=== PATIENT | female | born 1965 | race Two or more races ===

== ENCOUNTER → 2020-06-26 11:11 | Outpatient (BNVA) | payer OTHER, SELFPAY | PROVIDERS: Visit Provider Surgery | DX: Z76.89 Persons encountering health services in other specified circumstances (principal) | CPT/HCPCS: 99393 ==

== ENCOUNTER 2020-06-26 13:07 | Outpatient (REF) | payer OTHER, SELFPAY ==
[2020-06-26 14:01] LABS: MANUAL DIFF FLAG NO
[2020-06-26 14:08] LABS: Basophils Percent Auto 0.3 % (0-2); Eosinophils Absolute Auto 0.1 X10*3/uL (0.0-0.4); Hemoglobin 12.9 g/dl (12.0-16.0); Imm Gran Abs Auto 0.01 X10*3/uL (0.00-0.03); Imm Gran Pct Auto 0.2 % (0.0-0.4); Lymphocytes Absolute Auto 1.7 X10*3/uL (1.2-4.9); Lymphocytes Percent Auto 29.3 % (20-40); Mean Corpuscular HGB Conc 31.5 g/dl (31.0-35.0); Mean Corpuscular Volume 89.1 fL (80-98); Mean Platelet Volume 10.6 fL (9.4-12.3); Monocytes Absolute Auto 0.6 X10*3/uL (0.1-1.2); Monocytes Percent Auto 9.8 % (2-11); Neutrophils Absolute Auto 3.4 X10*3/uL (2.0-8.3); Neutrophils Percent Auto 59.4 % (45-73); Platelet Count 252 X10*3/uL (160-400); Red Cell Distribution Width 13.2 % (11.0-16.0); White Blood Count 5.7 X10*3/uL (4.8-10.8)
[2020-06-26 14:44] LABS: Alanine Aminotransferase 19 U/L (0-31); Albumin Level 4.4 g/dL (3.5-5.0); Alkaline Phosphatase 81 U/L (39-117); Amylase 69 U/L (28-100); Anion Gap 10 (12-20); Aspartate Amino Transferase 28 U/L (5-31); Bilirubin Total 0.8 mg/dL (0.0-1.0); Blood Urea Nitrogen 26 mg/dL (9-16); Calcium 9.4 mg/dL (8.4-10.2); Carbon Dioxide 28 mmol/L (22-29); Chloride 107 mmol/L (96-108); Estimated Glomerular Filt Rate > 60; Glucose Random 68 mg/dL (60-115); Potassium 4.1 mmol/l (3.3-5.1); Sodium 141 mmol/L (135-145)
[2020-06-28 21:26] LABS: CRP High Sensitivity 0.6 mg/L
== END 2020-06-26 13:08 | disposition home or self-care (01) ==
LOC: HO.LAB 13:07
PROVIDERS: PCP Internal Medicine; Visit Provider Surgery
DX: K80.20 Calculus of gallbladder without cholecystitis without obstruction (principal)
CPT/HCPCS: 36415; 80053; 82150; 85025; 86141

== ENCOUNTER 2020-06-30 09:11 | Day surgery (SDC) | payer OTHER, SELFPAY ==
--- NOTE | 2020-06-29 15:49 | HO.ANESPROP2 ---
Documented by User: Naomi Conway 06/29/20 15:55 HPI - Anesthesia Eval Consult details Narrative: 54yo F for lap musa s/p gastric bypass [facility] Past Medical History Medical History (Updated 06/30/20 @ 11:11 by Elen Ellis) Cholelithiasis Intestinal malabsorption Surgical History Surgical History S/P gastric bypass Status post panniculectomy Social History Social History Smoking Status: Never smoker Use of substances other than those prescribed or required for medical reasons: No Advance Directives: No Advance Directives Information Provided: No Meds Allergies Allergy/AdvReac Type Severity Reaction Status Date / Time hydrocodone [HYDROCODONE] Allergy Mild SWELLING Unverified 06/30/20 11:16 Pt states no known food Allergy Unknown Unknown Uncoded 06/30/20 11:16 allerg Home Medications Medication Instructions Recorded Confirmed Type ascorbate calcium (vitamin C) 500 500 mg PO DAILY 06/26/20 06/26/20 History mg tablet multivitamin 1 cap PO DAILY 06/26/20 06/26/20 History Exam Exam Date and Time: June 29, 2020 0251 Pertinent Lab Results Pertinent Lab Results: Laboratory Tests 06/26/20 06/26/20 13:36 13:36 WBC 5.7 Hgb 12.9 Hct 41.0 Plt Count 252 Sodium 141 Potassium 4.1 Chloride 107 Carbon Dioxide 28 BUN 26 H Creatinine 0.73 Calcium 9.4 Total Bilirubin 0.8 AST 28 ALT 19 Alkaline Phosphatase 81 Total Protein 7.0 Albumin 4.4 Assessment and Plan Assessment Anesthesia Assessment: Chart Reviewed Documented by User: Elen Ellis 06/30/20 12:58 [facility] Past Medical History Medical History (Updated 06/30/20 @ 11:11 by Elen Ellis) Cholelithiasis Intestinal malabsorption Surgical History Surgical History S/P gastric bypass Status post panniculectomy History of Problems with Anesthesia: No Social History Social History Smoking Status: Never smoker Use of substances other than those prescribed or required for medical reasons: No Advance Directives: No Advance Directives Information Provided: No Meds Allergies Allergy/AdvReac Type Severity Reaction Status Date / Time hydrocodone [HYDROCODONE] Allergy Mild SWELLING Unverified 06/30/20 11:16 Pt states no known food Allergy Unknown Unknown Uncoded 06/30/20 11:16 allerg Home Medications Medication Instructions Recorded Confirmed Type ascorbate calcium (vitamin C) 500 500 mg PO DAILY 06/26/20 06/26/20 History mg tablet multivitamin 1 cap PO DAILY 06/26/20 06/26/20 History Exam Airway Mallampati Class: I TM Dist: >3cm Neck ROM: Full Heart: RRR Lungs: CTA Assessment and Plan Assessment Anesthesia Assessment: Anesthesia Plan Discussed, Consent Obtained and Chart Reviewed Final Anesthetic Review NPO: Yes ASA Class: II Final Preanesthetic Review: Meds & Allergies Reviewed, Consent Obtained/Reviewed, Med/Surg/Anes Hx Reviewed and Anes Risks/Benef Reviewed Patient Risk: Low Procedure Risk: Intermediate Anesthetic Plan Anesthetic Plan: GA Disposition: Standard PACU
[2020-06-29 16:00] VITALS: BMI 16.6
[2020-06-30] VITALS (11 sets, daily range): BP systolic 133–169; BP diastolic 68–99; PULSE 49–72; RESP 16–20; TEMP 36.1–36.7; O2SAT 95–100
[2020-06-30] MEDS: Lactated Ringers 1,000 ML 100 ML IVCONT (10:38)
[2020-06-30] MEDS: ceFAZolin Sodium/Dextrose,Iso 2 GM/50 ML PIGGYBACK IV (10:38)
[2020-06-30 11:09] LABS: SARS COV2 PCR INHOUSE NEGATIVE (Negative)
--- NOTE | 2020-06-30 12:10 | MHC.SHP ---
Pre-Procedural Eval Section A The patient is an INPATIENT: No The History & Physical has been completed within 30 days and I have reviewed it.: Yes Section B Chief Complaint: Cholesistitis Details of Present Illness: Cholecystitis/cholelithiasis Relevant Family History (Specify if Yes): No Relevant Social History: None Present Medications: None History of Previous Operations: Relevant previous surgery/procedure and date(s) (Lap gastric bypass surgery) Allergies: Allergies Allergy/AdvReac Type Severity Reaction Status Date / Time hydrocodone [HYDROCODONE] Allergy Mild SWELLING Unverified 06/30/20 11:16 Pt states no known food Allergy Unknown Unknown Uncoded 06/30/20 11:16 allerg Review of Systems Sugical H&P ROS: Negative: Constitution, Cardiovascular, Respiratory, Neurological, Psychiatric, Hem-Onc, Allergic/Immunologic, Genitourinary, Musculoskeletal, Integumentary, Endocrine and Eyes/Ears/Nose/Throat and Yes, Specify: Gastrointestinal (abdominal pain) Exam Surgical H&P Exam: Normal: HEENT, Normal: Heart, Normal: Lungs, Normal: Extremities, Normal: Abdomen, Normal: Skin and Normal: Neurological Plan Diagnosis/Plan: Unchanged Patient has been examined and remains a candidate for the planned procedure
--- NOTE | 2020-06-30 14:41 | PM.OP ---
Brief Operative Note Date of procedure: 06/30/20 Pre-op diagnosis: Symptomatic cholelithiasis Post-op diagnosis: same (and Cholecystitis and internal hernia) Procedure: PROCEDURE DATE: 06/30/2020 PREOPERATIVE DIAGNOSIS: Symptomatic cholelithiasis, mid epigastric and right upper quadrant abdominal pain POSTOPERATIVE DIAGNOSIS: Same as above. Cholecystitis and internal hernia PROCEDURE: Upper endoscopy, laparoscopic cholecystectomy and laparoscopic internal hernia repair Surgeon: Matt Magallon M.D.. Ph.D. Employee Communications Coordinator: Yesenia Javier PA-C Anesthesia: General endotracheal anesthesia Estimated blood loss: Minimal FINDINGS AND PROCEDURE: OPERATIVE INDICATIONS: The patient is a 54 year old female known to me who underwent a laparoscopic gastric bypass. The patient had remarkable weight loss so far and had a completely uneventful recovery. The patient was doing very well but has recently been complaining of persistent mid epigastric and right upper quadrant abdominal pain which is mostly postprandial. Ultrasound of the abdomen and pelvis was consistent with cholelithiasis. Based on this information I recommended laparoscopic cholecystectomy, upper endoscopy to evaluate the patient's symptoms. In addition to that the plan was also to examine the gastric bypass at the same time. Risks and complications of the surgery were discussed with the patient advance particularly the possibility of conversion to an open surgery, bleeding, infection, obstruction, deep vein thrombosis or pulmonary embolism, bile leak or major bile duct injury that may require surgical intervention. The patient understood the risks and was in agreement with the plan. PROCEDURE: After informed consent was obtained by the patient, the patient was transferred to the Operating Room and was placed in the supine position. The patient was given preoperative antibiotics and after successful induction of general anesthesia pneumatic compression devices were placed. An upper endoscopy was performed next, the oropharynx and esophagus appeared within the normal limits. There was no hiatal hernia. The small pouch was entered, appeared to be of normal size, there was no gastritis and the gastrojejunostomy was patent, there was no anastomotic ulcer. The proximal Nori limb appeared to be normal as well. At that point the Nori limb and the pouch was decompressed and the scope was withdrawn from the patient's mouth. The patient was then prepped and draped in the usual sterile manner and abdominal access was established with the Dread technique. The abdomen was insufflated with C02 to a pressure of 15 mmHg. A 5 mm Versi-step port was placed, slightly to the right and superior from the umbilicus. The 5 mm camera was introduced. I inspected the area where the port had been placed and there was no injury. The patient was then placed initially in a steep reverse Trendelenburg position and three additional ports were placed, specifically a 12 mm Versi-step port just to the right of the midline below the xiphoid process and two 5 mm Versi-step ports at the right upper quadrant and right flank. The patient was then placed back in the supine position and we examined the bypass by retracting the transverse mesocolon and the omentum cephalad. The jejunostomy was identified, it appeared to be normal. There was no dilation of the anastomosis. The small bowel mesenteric defect was closed and there was no internal hernia. The biliopancreatic limb was traced back to the ligament of Treitz and the Hester's defect which was actually open wiht part of the biliopancreatic limb herniated under the Nori limb mesentery. This was closed with a 2.0 Surgidac suture which was placed in a U-fashion between the biliopancreatic limb and the Nori limb mesentery. The mesocolic defect was closed. At that point we positioned back the transverse colon and the omentum above the small intestine and then the patient was placed in a steep reverse Trendelenburg position tilted to the left side. The gallbladder was retracted cephalad and laterally. There were adhesions between the omentum and the gallbladder wall that were taken down. The peritoneal attachments of the gallbladder at the triangle of Calot posteriorly and anteriorly were taken down. The cystic duct and artery were both seen. They were completely dissected free, skeletonized all the way to the infundibulum of the gallbladder . In a similar fashion I also cleaned the liver bed just behind the cystic artery to make sure there was no additional structures in this area. Once we confirmed that both structures were entering into the gallbladder and there were no other structures in the area, they were both clipped with two clips proximally, one distally and were cut in-between. We then using the electrocautery I slowly took down the gallbladder from the liver bed. Small areas of bleeding from the liver parenchyma were controlled with the cautery. After the gallbladder was completely detached from the liver bed, it was placed in an EndoCatch bag and was removed without difficulty from the xiphoid port. I then inspected the clips at the cystic duct and artery and were both in place. An additional clip was placed in the omentum to control a minor bleeding site. There was no active bleeding from the liver bed. I thoroughly irrigated the right upper quadrant and we removed all fluid until clear. At that point the patient was placed in supine position, I deflated the abdomen and we removed all ports under direct vision and no bleeding was noted from any of the port sites. The fascia of the 12 mm port was closed using a #1 Polysorb suture. 1000cc 0.25% Marcaine plain with 10 mg of Dexamehtasone were used to infiltrate the fascial closure as well as all skin incisions. The wounds were irrigated with saline mixed with antibiotic solution and then the skin was closed with 4-0 Monocryl subcuticular sutures antibiotic-coated. Steri-strips and OpSites were used to cover all incisions. The patient extubated and was transferred in stable condition to the Recovery Room for further care. I was present and performed all steps of the procedure. Ms. Javier was the welder first class. There were no residents to assist with this case. Matt Magallon M.D., Ph.D. Anesthesia: GETA and local (TAP) Surgeon: Benito Magallon Employee Communications Coordinator: Yesenia Javier Estimated blood loss (mL): 10 IV fluids (mL): 2,000 Pathology: other (Gallbladder) Condition: stable Disposition: PACU
[2020-06-30] MEDS: oxyCODONE HCl Immed Release 5 MG TABLET PO (14:57)
[2020-06-30] MEDS: diphenhydrAMINE HCL 25 MG TABLET PO (15:17)
[2020-06-30] MEDS: diphenhydrAMINE HCL 50 MG/ML VIAL 12.5 MG IVPUSH (15:51)
== END 2020-06-30 23:59 ==
PROVIDERS: Surgery; PCP Internal Medicine; Visit Provider Internal Medicine
PROC: 0FT44ZZ Resection of Gallbladder, Percutaneous Endoscopic Approach (ICD-10-PCS; CPT 47562; principal; 2020-06-30 14:10)
DX: K80.10 Calculus of gallbladder with chronic cholecystitis without obstruction (principal); K82.8 Other specified diseases of gallbladder; K90.49 Malabsorption due to intolerance, not elsewhere classified; Z98.84 Bariatric surgery status
CPT/HCPCS: 47562; 36415; 87635; 88304; J0131; J0690; J1100; J1200; J1885; J2250; J2405; J3010; Q0163

== ENCOUNTER → 2020-09-28 07:32 | Outpatient (BNVA) | payer OTHER, SELFPAY | PROVIDERS: PCP Internal Medicine; Visit Provider Surgery | DX: Z76.89 Persons encountering health services in other specified circumstances (principal) ==

== ENCOUNTER 2020-10-13 07:27 | Outpatient (REF) | payer OTHER, SELFPAY ==
--- NOTE | 2020-10-13 07:31 | MM_ITS ---
EXAMINATION: MM SCREENING DIGITAL BREAST TOMOSYNTHESIS, BILATERAL CLINICAL INFORMATION: Screening. Asymptomatic. The lifetime risk of breast cancer based on the Tyrer-Cuzick Model is 8.5%. COMPARISON: Mammography: October 08, 2019 and studies dating back to March 05, 2014 TECHNIQUE: Digital breast tomosynthesis is performed in both the craniocaudal and mediolateral oblique views along with computer-aided detection (CAD). Synthesized 2D images are generated from the tomosynthesis. FINDINGS: There are scattered areas of fibroglandular density (ACR BI-RADS breast composition Category b). There are no significant masses, abnormal calcifications, or other abnormalities. MM/MM tomosynthesis screening BI IMPRESSION: There are no significant changes from prior study. ASSESSMENT: BI-RADS 1: Negative RECOMMENDATION: Routine annual mammography screening. This patient's information was entered into a reminder system with a target due date for their next mammogram.
== END 2020-10-13 07:28 | disposition home or self-care (01) ==
LOC: HO.MAMMO 07:27
PROVIDERS: PCP Internal Medicine; Visit Provider Internal Medicine
DX: Z12.31 Encounter for screening mammogram for malignant neoplasm of breast (principal)
CPT/HCPCS: 77063; 77067

== ENCOUNTER 2020-10-13 08:13 | Outpatient (REF) | payer OTHER, SELFPAY | END 2020-10-13 08:14 | disposition home or self-care (01) | LOC: HO.LAB 08:13 | PROVIDERS: PCP Internal Medicine; Visit Provider Internal Medicine | DX: Z20.822 Contact with and (suspected) exposure to COVID-19 (principal) | CPT/HCPCS: 36415; C9803; U0003 ==

== ENCOUNTER → 2020-11-12 08:17 | Outpatient (BNVA) | payer OTHER, SELFPAY | PROVIDERS: PCP Internal Medicine; Visit Provider Physician Assistant ==

== ENCOUNTER 2020-11-19 10:15 | Outpatient (REF) | payer OTHER, SELFPAY ==
[2020-11-19 12:59] LABS: MANUAL DIFF FLAG NO
[2020-11-19 13:11] LABS: Basophils Percent Auto 0.6 % (0-2); Eosinophils Absolute Auto 0.1 X10*3/uL (0.0-0.4); Eosinophils Percent Auto 1.2 % (0-4); Hematocrit 41.6 % (37-47); Hemoglobin 13.1 g/dl (12.0-16.0); Imm Gran Abs Auto 0.01 X10*3/uL (0.00-0.03); Imm Gran Pct Auto 0.2 % (0.0-0.4); Lymphocytes Absolute Auto 1.7 X10*3/uL (1.2-4.9); Lymphocytes Percent Auto 33.1 % (20-40); Mean Corpuscular HGB Conc 31.5 g/dl (31.0-35.0); Mean Corpuscular Volume 88.9 fL (80-98); Mean Platelet Volume 10.4 fL (9.4-12.3); Monocytes Absolute Auto 0.4 X10*3/uL (0.1-1.2); Monocytes Percent Auto 8.1 % (2-11); Neutrophils Percent Auto 56.8 % (45-73); Platelet Count 240 X10*3/uL (160-400); Red Blood Count 4.68 X10*6/uL (4.20-5.50); Red Cell Distribution Width 12.9 % (11.0-16.0); White Blood Count 5.2 X10*3/uL (4.8-10.8)
[2020-11-19 13:31] LABS: Anion Gap 13 (12-20); Blood Urea Nitrogen 22 mg/dL (9-16); Calcium 9.4 mg/dL (8.4-10.2); Carbon Dioxide 27 mmol/L (22-29); Chloride 107 mmol/L (96-108); Estimated Glomerular Filt Rate > 60; Glucose Fasting 83 mg/dL (60-99); Iron 96 mcg/dL (30-160); Potassium 4.3 mmol/L (3.3-5.1); Sodium 143 mmol/L (135-145); Unsaturated Iron Binding 304 ug/dL
[2020-11-19 13:32] LABS: Alanine Aminotransferase 28 U/L (0-31); Albumin Level 4.4 g/dL (3.5-5.0); Alkaline Phosphatase 93 U/L (39-117); Aspartate Amino Transferase 32 U/L (5-31); Bilirubin Total 1.3 mg/dL (0.0-1.0); C Reactive Protein 0.03 mg/dL (< or = 0.50); Cholesterol 244 mg/dL; HDL Cholesterol 74 mg/dL; LDL Cholesterol Calculated 156 mg/dl; Percent Iron Saturation 24 % (15-50); Total Iron Binding Capacity 400 mcg/dL (228-428); Total Protein 7.2 g/dL (6.5-8.0); Triglycerides 72 mg/dL
[2020-11-19 13:53] LABS: Ferritin 12 ng/mL (10-250); TSH reflex Free T4 0.56 uIU/mL (0.32-4.0); Vitamin D 25-OH Total 38.1 ng/mL (>30)
[2020-11-19 14:01] LABS: Estimated Average Glucose 97 mg/dL
[2020-11-19 18:22] LABS: Folate 18.7 ng/mL (> or = 4.0); Vitamin B12 717 pg/mL (200-900)
[2020-11-20 11:16] LABS: Insulin Level Total 2.5 uIU/mL
[2020-11-22 02:41] LABS: Zinc 79 mcg/dL (60-130)
[2020-11-23 13:56] LABS: Calcium (PTHI) 9.5 mg/dL (8.6-10.4); PTHI 64 pg/mL (14-64)
[2020-11-24 13:41] LABS: Vitamin B1 15 nmol/L (8-30)
[2020-11-25 02:02] LABS: Vitamin A 44 mcg/dL (38-98)
== END 2020-11-19 10:16 | disposition home or self-care (01) ==
LOC: HO.LAB 10:15
PROVIDERS: PCP Internal Medicine; Visit Provider Physician Assistant
DX: K91.2 Postsurgical malabsorption, not elsewhere classified (principal); Z90.3 Acquired absence of stomach [part of]; Z98.84 Bariatric surgery status; Z98.890 Other specified postprocedural states; Z71.3 Dietary counseling and surveillance
CPT/HCPCS: 36415; 80053; 80061; 82306; 82607; 82728; 82746; 83036; 83525; 83540; 83970; 84425; 84443; 84590; 84630; 85025; 86140

== ENCOUNTER → 2020-11-24 08:51 | Outpatient (BNVA) | payer OTHER, SELFPAY | PROVIDERS: PCP Internal Medicine; Visit Provider Dietitian, Registered ==

== ENCOUNTER → 2021-01-19 07:29 | Outpatient (BNVA) | payer OTHER, SELFPAY | PROVIDERS: PCP Internal Medicine; Visit Provider Dietitian, Registered ==

== ENCOUNTER 2021-04-20 09:40 | Outpatient (REF) | payer OTHER, SELFPAY ==
[2021-04-20 10:53] LABS: Alanine Aminotransferase 17 U/L (0-31); Albumin Level 4.1 g/dL (3.5-5.0); Alkaline Phosphatase 87 U/L (39-117); Anion Gap 10 (12-20); Aspartate Amino Transferase 29 U/L (5-31); Blood Urea Nitrogen 14 mg/dL (9-16); Calcium 9.1 mg/dL (8.4-10.2); Carbon Dioxide 26 mmol/L (22-29); Chloride 109 mmol/L (96-108); Cholesterol 249 mg/dL; Estimated Glomerular Filt Rate > 60; Glucose Fasting 92 mg/dL (60-99); HDL Cholesterol 80 mg/dL; LDL Cholesterol Calculated 148 mg/dl; Potassium 4.1 mmol/L (3.3-5.1); Sodium 141 mmol/L (135-145); Total Protein 6.7 g/dL (6.5-8.0); Triglycerides 107 mg/dL
== END 2021-04-20 09:41 | disposition home or self-care (01) ==
LOC: HO.LAB 09:40
PROVIDERS: PCP Internal Medicine; Visit Provider Internal Medicine
DX: K90.9 Intestinal malabsorption, unspecified (principal); E78.5 Hyperlipidemia, unspecified
CPT/HCPCS: 36415; 80053; 80061

== ENCOUNTER 2021-04-28 13:54 | Outpatient (REF) | payer OTHER, SELFPAY ==
--- NOTE | ~2021-04-28 | US_ITS ---
EXAMINATION: US SOFT TISSUE HEAD AND NECK CLINICAL INFORMATION: Right cheek mass. Follow-up. COMPARISON: Ultrasound soft tissue 12/21/2018. TECHNIQUE: Real-time linear ultrasound is targeted to the area of clinical concern, right cheek. Patient is able to point to area of concern at time of imaging. Grayscale imaging and color Doppler are performed. FINDINGS: There is a solitary unilocular simple cyst at site of palpable concern right cheek measuring 0.8 x 0.4 x 0.7 cm. This is similar to prior measurements 0.7 x 0.4 x 0.7 cm. There is no solid component or associated internal or peripheral color flow. Long axis is parallel with the skin. There is no hyperemia in the soft tissues. No skin thickening or edema tracking in the soft tissue planes. US/US soft tiss head and/or neck IMPRESSION: The nonspecific cystic lesion right cheek and without significant change from prior ultrasound 12/21/2018.
== END 2021-04-28 13:55 | disposition home or self-care (01) ==
LOC: HO.US 13:54
PROVIDERS: PCP Internal Medicine; Visit Provider Internal Medicine
DX: M79.89 Other specified soft tissue disorders (principal)
CPT/HCPCS: 76536

== ENCOUNTER → 2021-05-17 09:04 | Outpatient (BNVA) | payer OTHER, SELFPAY | PROVIDERS: PCP Internal Medicine; Visit Provider Dietitian, Registered | DX: Z98.84 Bariatric surgery status (principal); R73.03 Prediabetes; Z71.3 Dietary counseling and surveillance | CPT/HCPCS: 97803 ==

== ENCOUNTER → 2021-09-01 08:22 | Outpatient (BNVA) | payer OTHER, SELFPAY | PROVIDERS: PCP Internal Medicine; Referring Provider Internal Medicine; Visit Provider Physician Assistant Surgical ==

== ENCOUNTER → 2021-09-08 07:26 | Outpatient (BNVA) | payer OTHER, SELFPAY | PROVIDERS: PCP Internal Medicine; Referring Provider Internal Medicine; Visit Provider Dietitian, Registered | DX: Z98.84 Bariatric surgery status (principal) | CPT/HCPCS: 97803 ==

== ENCOUNTER 2021-09-09 10:10 | Outpatient (REF) | payer OTHER, SELFPAY ==
[2021-09-09 10:32] LABS: MANUAL DIFF FLAG NO
[2021-09-09 10:41] LABS: Basophils Percent Auto 0.2 % (0-2); Eosinophils Absolute Auto 0.1 X10*3/uL (0.0-0.4); Hematocrit 41.7 % (37.0-47.0); Hemoglobin 13.1 g/dl (12.0-16.0); Imm Gran Abs Auto 0.01 X10*3/uL (0.00-0.03); Imm Gran Pct Auto 0.2 % (0.0-0.4); Lymphocytes Absolute Auto 1.5 X10*3/uL (1.2-4.9); Lymphocytes Percent Auto 26.9 % (20-40); Mean Corpuscular HGB Conc 31.4 g/dl (31.0-35.0); Mean Corpuscular Hemoglobin 27.6 pg (27.0-33.0); Mean Corpuscular Volume 87.8 fL (80.0-98.0); Mean Platelet Volume 10.6 fL (9.4-12.3); Monocytes Absolute Auto 0.5 X10*3/uL (0.1-1.2); Monocytes Percent Auto 8.7 % (2-11); Neutrophils Absolute Auto 3.5 x10*3/uL (2.0-8.3); Platelet Count 248 X10*3/uL (160-400); Red Blood Count 4.75 X10*6/uL (4.20-5.50); Red Cell Distribution Width 13.2 % (11.0-16.0); White Blood Count 5.6 X10*3/uL (4.8-10.8)
[2021-09-09 11:12] LABS: Anion Gap 11 (12-20); Blood Urea Nitrogen 17 mg/dL (9-16); C Reactive Protein 0.05 mg/dL (< or = 0.50); Calcium 9.4 mg/dL (8.4-10.2); Carbon Dioxide 28 mmol/L (22-29); Chloride 106 mmol/L (96-108); Cholesterol 226 mg/dL; Estimated Glomerular Filt Rate > 60; Glucose Random 88 mg/dL (60-115); HDL Cholesterol 84 mg/dL; Iron 89 mcg/dL (30-160); LDL Cholesterol Calculated 120 mg/dl; Percent Iron Saturation 20 % (15-50); Potassium 4.3 mmol/L (3.3-5.1); Sodium 141 mmol/L (135-145); Total Iron Binding Capacity 444 mcg/dL (228-428); Triglycerides 112 mg/dL; Unsaturated Iron Binding 355 ug/dL
[2021-09-09 11:16] LABS: Estimated Average Glucose 100 mg/dL; Hemoglobin A1c % 5.1 %
[2021-09-09 11:36] LABS: Ferritin 13 ng/mL (10-250); TSH reflex Free T4 0.63 uIU/mL (0.32-4.0); Vitamin D 25-OH Total 31.9 ng/mL (>30)
[2021-09-09 11:50] LABS: Folate 13.4 ng/mL (> or = 4.0); Vitamin B12 597 pg/mL (200-900)
[2021-09-13 07:47] LABS: Vitamin B1 10 nmol/L (8-30)
[2021-09-14 01:47] LABS: Zinc 80 mcg/dL (60-130)
[2021-09-15 11:40] LABS: Vitamin A 48 mcg/dL (38-98)
== END 2021-09-09 10:11 | disposition home or self-care (01) ==
LOC: HO.LAB 10:10
PROVIDERS: PCP Internal Medicine; Visit Provider Physician Assistant Surgical
DX: I10 Essential (primary) hypertension (principal); K91.2 Postsurgical malabsorption, not elsewhere classified; Z90.3 Acquired absence of stomach [part of]
CPT/HCPCS: 36415; 80048; 80061; 82306; 82607; 82728; 82746; 83036; 83540; 84425; 84443; 84590; 84630; 85025; 86140

== ENCOUNTER 2021-09-23 13:50 | Outpatient (REF) | payer OTHER, SELFPAY ==
--- NOTE | ~2021-09-23 | US_ITS ---
EXAMINATION: US RETROPERITONEAL LIMITED (RENAL ONLY) CLINICAL INFORMATION: Essential hypertension. COMPARISON: None TECHNIQUE: Multiple 2-D grayscale and duplex Doppler ultrasound images of the renal arteries and kidneys were obtained. FINDINGS: The right kidney measures 9.4 cm. There is no hydronephrosis or nephrolithiasis. Arterial velocities are as follows: Intrarenal: Resistive index, 0.7 Right renal artery: Hilum: 157 cm/sec, resistive index 0.6 Mid: 172 cm/sec, resistive index at 0.7 Proximal: 131 cm/sec, resistive index 0.6 The right renal vein demonstrated normal venous waveforms. The left kidney measures 10.4 cm. There is no hydronephrosis or nephrolithiasis. Intrarenal: Resistive index 0.6 Left renal artery: Hilum: 132 cm/sec, resistive index 0.6 Mid: 130 cm/sec, resistive index of 0.6 Proximal: 123 cm/sec, resistive index 0.6 The left renal vein demonstrated normal venous waveforms. Aortic velocities measure up to 79 cm/sec. Renal to aortic velocity ratios are within the range of normal. Normal low resistance arterial wave forms are noted in both renal arteries. The visualized inferior vena cava is unremarkable US/US renal BI IMPRESSION: No hemodynamically significant renal artery stenosis. .
--- NOTE | ~2021-09-23 | US_ITS ---
EXAMINATION: US RETROPERITONEAL LIMITED (RENAL ONLY) CLINICAL INFORMATION: Essential hypertension. COMPARISON: None TECHNIQUE: Multiple 2-D grayscale and duplex Doppler ultrasound images of the renal arteries and kidneys were obtained. FINDINGS: The right kidney measures 9.4 cm. There is no hydronephrosis or nephrolithiasis. Arterial velocities are as follows: Intrarenal: Resistive index, 0.7 Right renal artery: Hilum: 157 cm/sec, resistive index 0.6 Mid: 172 cm/sec, resistive index at 0.7 Proximal: 131 cm/sec, resistive index 0.6 The right renal vein demonstrated normal venous waveforms. The left kidney measures 10.4 cm. There is no hydronephrosis or nephrolithiasis. Intrarenal: Resistive index 0.6 Left renal artery: Hilum: 132 cm/sec, resistive index 0.6 Mid: 130 cm/sec, resistive index of 0.6 Proximal: 123 cm/sec, resistive index 0.6 The left renal vein demonstrated normal venous waveforms. Aortic velocities measure up to 79 cm/sec. Renal to aortic velocity ratios are within the range of normal. Normal low resistance arterial wave forms are noted in both renal arteries. The visualized inferior vena cava is unremarkable US/US renal doppler IMPRESSION: No hemodynamically significant renal artery stenosis. .
== END 2021-09-23 13:51 | disposition home or self-care (01) ==
LOC: HO.HMGCX 13:50
PROVIDERS: PCP Internal Medicine; Visit Provider Internal Medicine
DX: I10 Essential (primary) hypertension (principal)
CPT/HCPCS: 76775; 93975

== ENCOUNTER → 2021-10-18 15:33 | Outpatient (REF) | payer OTHER, SELFPAY ==
--- NOTE | 2021-10-18 15:37 | ECG_ITS ---
Test Reason : chest pain Blood Pressure : / mmHG Vent. Rate : 057 BPM Atrial Rate : 057 BPM P-R Int : 158 ms QRS Dur : 086 ms QT Int : 470 ms P-R-T Axes : 027 -14 028 degrees QTc Int : 457 ms Sinus bradycardia Otherwise normal ECG When compared to the previous EKG of No significant changes seen Referred By: Chantelle Mayen Electronically Signed By:EVARISTO ORTEGA MD
== END ==
LOC: HO.CARD 15:33
PROVIDERS: PCP Internal Medicine; Visit Provider Internal Medicine
DX: R07.9 Chest pain, unspecified (principal); R00.1 Bradycardia, unspecified
CPT/HCPCS: 93005

== ENCOUNTER → 2021-10-28 13:06 | Outpatient (BNVA) | payer OTHER, SELFPAY | PROVIDERS: PCP Internal Medicine; Referring Provider Internal Medicine; Visit Provider Internal Medicine ==

== ENCOUNTER 2021-10-29 07:25 | Outpatient (REF) | payer OTHER, SELFPAY ==
--- NOTE | ~2021-10-29 | MM_ITS ---
EXAMINATION: MM SCREENING DIGITAL BREAST TOMOSYNTHESIS, BILATERAL CLINICAL INFORMATION: Screening. Asymptomatic. The lifetime risk of breast cancer based on the Tyrer-Cuzick Model is 8%. COMPARISON: Mammography: 10/13/2020, 10/08/2019, 06/12/2018 TECHNIQUE: Digital breast tomosynthesis is performed in both the craniocaudal and mediolateral oblique views along with computer-aided detection (CAD). Synthesized 2D images are generated from the tomosynthesis. FINDINGS: There are scattered areas of fibroglandular density (ACR BI-RADS breast composition Category b). Breast tissue composition borders on predominantly fatty. The right MLO view has some accentuated reticular markings mid upper quadrant 7.5 cm from the nipple likely incompletely compressed glandular tissue or superimposed summation of stromal markings. Patient will be recalled for additional imaging. The remainder of the breasts are unremarkable with no developing density or interval mass or architectural abnormality. There are some scattered round and ductal secretory calcifications bilaterally anterior breasts. The axilla and skin contours are unremarkable. MM/MM tomosynthesis screening BI IMPRESSION: 1. Right: Accentuated reticular markings mid upper right breast on MLO view likely incompletely compressed tissue or summation of stromal markings. 2. Left: No mammographic evidence of malignancy. ASSESSMENT: BI-RADS 0: Incomplete - Need Additional Imaging Evaluation RECOMMENDATION: 1. Additional views of the right breast (spot MLO, standard ML). 2. Targeted ultrasound if warranted after review of the additional views. 3. Radiology department staff will contact the patient for additional imaging. This patient's information was entered into a reminder system with a target due date for their next mammogram.
== END 2021-10-29 07:26 | disposition home or self-care (01) ==
LOC: HO.MAMMO 07:25
PROVIDERS: PCP Internal Medicine; Visit Provider Internal Medicine
DX: Z12.31 Encounter for screening mammogram for malignant neoplasm of breast (principal)
CPT/HCPCS: 77063; 77067

== ENCOUNTER 2021-11-02 08:24 | Outpatient (REF) | payer OTHER, SELFPAY ==
--- NOTE | ~2021-11-02 | MM_ITS ---
EXAMINATION: MM DIAGNOSTIC DIGITAL BREAST TOMOSYNTHESIS, RIGHT CLINICAL INFORMATION: Recall from screening for accentuated reticular markings mid upper right breast on MLO view, suspect incompletely compressed glandular tissue or summation of stromal markings. TC score 8%. COMPARISON: Mammography: 10/29/2021, 10/13/2020, 10/08/2019, 06/12/2018 TECHNIQUE: Digital breast tomosynthesis is performed. 2D images are generated from the tomosynthesis. The following views are obtained: Spot MLO, standard ML. FINDINGS: There are scattered areas of fibroglandular density (ACR BI-RADS breast composition Category b). Additional views show no accentuated reticular markings in the upper right breast. There is no developing density or interval mass or architectural abnormality. Results are discussed with the patient at time of visit. MM/MM tomosynthesis added views R IMPRESSION: Additional views show no architectural abnormality or accentuated reticular markings. No significant changes from prior exams. ASSESSMENT: BI-RADS 1: Negative RECOMMENDATION: Routine annual mammography screening. This patient's information was entered into a reminder system with a target due date for their next mammogram.
== END 2021-11-02 08:25 | disposition home or self-care (01) ==
LOC: HO.MAMMO 08:24
PROVIDERS: Visit Provider Internal Medicine
DX: N64.89 Other specified disorders of breast (principal)
CPT/HCPCS: 77061; 77065

== ENCOUNTER → 2021-11-10 09:30 | Outpatient (REF) | payer OTHER, SELFPAY ==
--- NOTE | ~2021-11-10 | NM_ITS ---
Exercise Myocardial perfusion study Indication: Precordial chest pain to evaluate for myocardial ischemia Technique: The patient was brought in for an exercise perfusion study on 11/10/2020. Patient performed exercise as per Hernando protocol and was injected 25 mCi of sestamibi was given intravenously one target HR was achieved. Images were obtained using the SPECT gamma camera interlaced with the gating device. Images were obtained in supine position. Resting perfusion study was performed on 11/12/2020. Patient was administered 25 mCi of sestamibi intravenously at rest. Images were then obtained in supine position. Images obtained with and without CT attenuation. Total DLP 76 mGy-cm. Images were processed with the software and compared side to side in short axis, horizontal long axis and vertical long axis views. Findings: The stress perfusion study showed non attenuated images show normal uptake of radiotracer in all segments of LV myocardium. Attenuation corrected images show mildly reduced uptake mid and distal septum of the LV myocardium.. The gated study shows normal LV systolic function with calculated LVEF of 64%. LV cavity is normal in size. The gated study shows normal systolic wall thickening and contraction of all segments. There is no transient ischemic dilation. Resting study shows non attenuated images show minimally reduced uptake in the apex of the LV myocardium. Attenuation corrected images show mildly to moderately reduced uptake in the apex of the LV myocardium.. Gating at rest reveals normal systolic wall motion with ejection fraction at greater than 70 %. The findings are consistent with normal myocardial perfusion. NM/NM cardiolite stress test Impression: 1. Normal myocardial perfusion 2. Gated LVEF is 64% 3. Transient ischemic dilatation not present Stress EKG is equivocal for ischemia
--- NOTE | 2021-11-10 09:36 | CA_ITS ---
Acquisition Time: 2021-11-10 09:50:42 Total Exercise Time: 00:06:26 Test Indications: cp, htn Medications: see chart Protocol: DOMINIQUE Max HR: 141 BPM 85% of Pred: 165 BPM Max BP: 130/070 mmHG Max Work Load: 7.6 METS Exercise stress test with exercise 6 min 26 sec of Dominique protocol, without anginal symptoms, with frequent PVCs and ventricular bigeminy during most of exercise, with normotensive response to exercise, without EKG changes meeting criteria for ischemia, with J point depression and upslope STs. PVCs resolved in recovery. Nuclear images pending. Test reviewed with Dr Chamorro Referred By: David Ortiz Overread By: LINDA PA
== END ==
LOC: HO.CARD 09:30
PROVIDERS: Visit Provider Internal Medicine
DX: R07.2 Precordial pain (principal)
CPT/HCPCS: 78452; 93017; A9500

== ENCOUNTER → 2021-12-13 07:27 | Outpatient (REF) | payer OTHER, SELFPAY ==
--- NOTE | 2021-12-13 07:33 | CA_ITS ---
Transthoracic Echocardiogram Patient (Last, First, Middle): Omid Panda Yana, G Gender: Female Date of : 1965 Age: 55 Procedure Date: 12/13/2021 Procedure Type: Transthoracic Echocardiogram Location: OP Height: 144.78 cm Weight: 49.9 kg BSA: 1.39 m2 Heart Rate: bpm BP: 150 / 90 mmHg Pediatric Lpn: VH/OT Referring MD: David Ortiz MD Symptoms: R07.2 - Precordial pain Study Quality: Fair ECG Rhythm: Sinus Conclusions: - The left ventricular systolic function is normal. The visually estimated ejection fraction is between 60-65%. - The left atrium is severely dilated. - No obvious valvular pathology seen on this study. Findings Left Ventricle Normal left ventricular cavity size. There is mildly increased left ventricular wall thickness. The left ventricular systolic function is normal. The visually estimated ejection fraction is between 60-65%. There is no evidence of regional wall motion abnormalities. Diastolic function is normal for age. Right Ventricle Normal right ventricular cavity size and systolic function. Atria The left atrium is severely dilated. The right atrium is normal in size. Aortic Valve There is a normal trileaflet aortic valve. There is no aortic valve stenosis. There is no aortic valve regurgitation. Mitral Valve The mitral valve appears normal. There is trace mitral valve regurgitation. There is no mitral valve stenosis. Pulmonic Valve The pulmonic valve was not well visualized. Tricuspid Valve Normal tricuspid valve structure. There is mild tricuspid valve regurgitation. The pulmonary artery systolic pressure is normal. Great Vessels The sinuses of valsalva and sino tubular ridge are normal in size. Venous The inferior vena cava is normal in size and collapses greater than 50% with inspiration. Pericardium/Pleural There is no evidence of pericardial effusion. Prior Study Comparison Changes noted compared to prior study dated: 06/07/2016. Increase in atrial size. However there is also history of bariatric surgery and hence indexed size could change accordingly. Recommendations, Care & Conclusions No obvious valvular pathology seen on this study. Measurements 2D Linear Measurements IVSd: 1.25 0.6-0.9/0.6-1.0 cm LVIDd: 3.62 3.9-5.3/4.2-5.9 cm LVIDd Index: 2.60 2.4-3.2/2.2-3.1 cm/m2 LVIDs: 2.14 2.0-3.6 cm LVPWd: 1.24 0.7-1.1 cm Ao Root: 3.20 2.1-3.5 cm LA Diam: 3.60 2.7-3.8/3.0-4.0 cm LAIDs Index: 2.59 1.5-2.3 cm/m2 LV Mass: 187.89 67-162/88-224 g LV Mass Index: 135.17 43-95/49-115 g/m2 LVOT Diam: 2.20 3.0+(-)1.3 cm Mitral Valve MV Pk E: 0.74 MV PK A: 0.60 MV Decel Time: 317.00 E/A: 1.20 E'Lateral: 7.29 E'Medial: 6.09 E/E' Med: 12.20 E/E' Lat: 10.20 PHT: 93.00 MVA PHT: 2.37 Decel Lajas: 2.34 Aortic Valve AoV Pk Gurdeep: 1.23 AoV Mn Gurdeep: 0.86 AoV VTI: 0.28 AoV Pk Grad: 6.00 Aov Mn Grad: 3.00 DEVI Cont.VTI: 3.08 LVOT LVOT Pk Gurdeep: 0.89 LVOT Mn Gurdeep: 0.60 LVOT VTI: 0.23 LVOT Pk Grad: 3.00 LVOT Mn Grad: 2.00 LVOT Diam: 2.20 LVOT Area: 3.80 Diastolic Function MV Pk E: 0.74 MV Pk A: 0.60 E/A: 1.20 E'Medial: 6.09 E/E' Med: 12.20 E' Laterial: 7.29 E/E' Lat: 10.20 Tricuspid Valve TR Pk Gurdeep: 2.24 TR Pk Grad: 20.00 RA Press: 3.00 RVSP: 23.00 Great Vessels Aorta Ao Root-2D: 3.20 2.0-3.7 cm Sinus of Valsalva: 2.90 2.0-3.5 cm Ao Arch: 2.80 Pulmonary Valve PV Pk Gurdeep: 0.81 Peak PV Grad: 3.00 Updated in Other Vendor System with Status of Final David Ortiz MD electronically signed on 12/13/2021 12:44:13 PM with status of Final
== END ==
LOC: HO.CARD 07:27
PROVIDERS: Visit Provider Internal Medicine
DX: R07.2 Precordial pain (principal)
CPT/HCPCS: 93306

== ENCOUNTER 2021-12-14 16:11 | Emergency (ER) | payer OTHER, SELFPAY ==
--- NOTE | ~2021-12-14 | XR_ITS ---
EXAMINATION: XR RIBS, RIGHT CLINICAL INFORMATION: Right lower rib pain. COMPARISON: Chest radiograph dated from 08/23/2016. TECHNIQUE: 3 views of the right ribs were obtained. FINDINGS: Stable prominence of the cardiomediastinal silhouette. Very subtle haziness in the medial aspect of the right lower lobe, new since 2016. Otherwise, clear lungs. No pleural effusions or pneumothorax. No evidence of acutely displaced rib fractures. Multiple surgical clips are identified in the upper abdomen. XR/XR ribs RT min 3V w CXR1V IMPRESSION: Questionable focal airspace opacity in the right lower lobe which could be associated with subsegmental atelectasis, aspiration or developing pneumonia. No evidence of acutely displaced rib fractures.
--- NOTE | ~2021-12-14 | XR_ITS ---
EXAMINATION: XR LUMBOSACRAL SPINE CLINICAL INFORMATION: Back pain. COMPARISON: No similar priors are available at the moment of this dictation. TECHNIQUE: Three views of the lumbosacral spine. FINDINGS: No evidence of acute compression deformities or malalignment. Moderate multilevel lumbar spondylosis with disc space narrowing, osteophytes and bilateral facet arthropathy which are more apparent in the lower lumbar spine. Sacroiliac joints are symmetric. Pubic symphysis is maintained. Nonobstructive bowel gas pattern. Multiple surgical clips overlying the upper abdomen. Pelvic phleboliths. XR/XR lumbar spine 2-3V IMPRESSION: No acute compression deformities or malalignment. Multilevel lumbar spondylosis for which correlation with an MR of the lumbar spine could be obtained if clinically helpful for further assessment of nerve root impingement and central canal narrowing.
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
[2021-12-14 16:27] VITALS: BP 120/71; PULSE 81; RESP 16; TEMP 36.4; O2SAT 98; BMI 23.8
[2021-12-14 16:35] VITALS: BP 126/68; PULSE 84
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
[2021-12-14] MEDS: Acetaminophen 325 MG TABLET 650 MG PO (17:46)
--- NOTE | 2021-12-14 20:36 | PC.NURSE ---
PT HARD COLLAR REMOVED BY ROMAINE CHOI.
== END 2021-12-14 20:40 | disposition home or self-care (01) ==
PROVIDERS: Emergency Provider Internal Medicine; PCP Internal Medicine
DX: S00.83XA Contusion of other part of head, initial encounter (principal); V43.52XA Car driver injured in collision with other type car in traffic accident, initial encounter; J18.9 Pneumonia, unspecified organism; Y93.89 Activity, other specified; Y92.414 Local residential or business street as the place of occurrence of the external cause; Y99.9 Unspecified external cause status
CPT/HCPCS: 70450; 70486; 71101; 72100; 72125; 99284

== ENCOUNTER → 2021-12-16 08:27 | Outpatient (BNVA) | payer OTHER, SELFPAY | PROVIDERS: PCP Internal Medicine; Referring Provider Internal Medicine; Visit Provider Internal Medicine | DX: R07.2 Precordial pain (principal); I10 Essential (primary) hypertension; Z79.899 Other long term (current) drug therapy; Z98.84 Bariatric surgery status | CPT/HCPCS: 99212 ==

== ENCOUNTER 2022-09-27 08:04 | Outpatient (REF) | payer OTHER, SELFPAY ==
--- NOTE | ~2022-09-27 | MM_ITS ---
EXAMINATION: BONE DENSITOMETRY CLINICAL INDICATION: Menopause. COMPARISON: Baseline BD dated 04/03/2018. TECHNIQUE: Using a [employer] DXA System (software version: 13.1) manufactured by [employer], dual-energy x-ray absorptiometry was performed of the lumbar spine and left hip. The images are of good technical quality. Summary results are attached. FINDINGS: AP SPINE L1-L3 (excluding L4): The data of L1-L4 has been changed to exclude L4 because artifact from navel ring may cause overestimation of the lumbar spine density. Current: BMD 0.957 g/cm2, Z-score -0.4, T-score -1.8, osteopenia, 7.4% decrease from baseline (<5% change is not significant). Baseline: BMD 0.077 g/cm2. LEFT FEMUR, NECK: Current: BMD 0.702 g/cm2, Z-score -1.1, T-score -2.4, osteopenia. Baseline: BMD 0.724 g/cm2. LEFT FEMUR, TOTAL: Current: BMD 0.794 g/cm2, Z-score -0.7, T-score -1.7, osteopenia, 3.4% decrease from baseline (<5% change is not significant). Baseline: BMD 0.822 g/cm2. IDENTIFIED RISK FACTORS: Early menopause, bilateral oophorectomy, family history (parent hip fracture), hysterectomy, osteoporosis, secondary osteoporosis. HISTORY OF FRACTURE: None listed. MEDICATIONS: Calcium, multivitamin. MM/XR DEXA axial skeleton IMPRESSION: 1. DIAGNOSIS: Osteopenia based on the lowest T-score value of -2.4 in the femoral neck applying World Health Organization criteria. 2. 10-YEAR FRACTURE RISK PREDICTION, FRAX: Major osteoporotic fracture (clinical spine, forearm, hip or shoulder) 10.3%. Hip fracture 1.0%. 3. Treatment Recommendations: NOF guidelines recommend consideration for treatment in postmenopausal women and men age 50 and older presenting with the following: -A hip or vertebral (clinical or morphometric) fracture. -T-score less than or equal to -2.5 at the femoral neck or spine after appropriate evaluation to exclude secondary causes. -Low bone mass at the hip or spine and a 10-year fracture probability by FRAX of greater than or equal to 3% for hip fracture or greater than or equal to 20% for major osteoporotic fracture based on the [place] adapted WHO algorithm. 4. Other Recommendations: All treatment decisions require clinical judgment and consideration of individual patient factors, including patient preferences, comorbidities, previous drug use, risk factors not captured in the FRAX model (e.g. frailty, falls, vitamin D deficiency, increased bone turnover, interval significant decline in bone density) and possible under or overestimation of fracture risk by FRAX. Additional medical evaluation for secondary cause of low bone mineral density may be appropriate. FUTURE SCAN RECOMMENDATION: People with diagnosed cases of osteoporosis or at high risk for fracture should have regular bone mineral density tests. For patients eligible for Medicare, routine testing is allowed once every 2 years. The testing frequency can be increased to one year for patients who have rapidly progressing disease, those who are receiving or discontinuing medical therapy to restore bone mass, or have additional risk factors.
== END 2022-09-27 08:05 | disposition home or self-care (01) ==
LOC: HO.MAMMO 08:04
PROVIDERS: Visit Provider Internal Medicine
DX: Z13.820 Encounter for screening for osteoporosis (principal); Z78.0 Asymptomatic menopausal state
CPT/HCPCS: 77080

== ENCOUNTER 2022-10-04 09:39 | Outpatient (REF) | payer OTHER, SELFPAY ==
[2022-10-04 11:40] LABS: Alanine Aminotransferase 14 U/L (0-31); Alkaline Phosphatase 86 U/L (39-117); Anion Gap 13 (12-20); Aspartate Amino Transferase 23 U/L (5-31); Bilirubin Total 1.2 mg/dL (0.0-1.0); Blood Urea Nitrogen 16 mg/dL (9-16); Calcium 9.1 mg/dL (8.4-10.2); Carbon Dioxide 25 mmol/L (22-29); Chloride 108 mmol/L (96-108); Cholesterol 216 mg/dL; Estimated Glomerular Filt Rate > 60; Glucose Fasting 87 mg/dL (60-99); HDL Cholesterol 75 mg/dL; LDL Cholesterol Calculated 121 mg/dl; Potassium 4.4 mmol/L (3.3-5.1); Sodium 142 mmol/L (135-145); Total Protein 6.7 g/dL (6.5-8.0); Triglycerides 101 mg/dL
== END 2022-10-04 09:40 | disposition home or self-care (01) ==
LOC: HO.LAB 09:39
PROVIDERS: PCP Internal Medicine; Visit Provider Internal Medicine
DX: Z00.00 Encounter for general adult medical examination without abnormal findings (principal); E55.9 Vitamin D deficiency, unspecified; E78.5 Hyperlipidemia, unspecified
CPT/HCPCS: 36415; 80053; 80061; 82306

== ENCOUNTER 2022-10-10 10:11 | Outpatient (REF) | payer OTHER, SELFPAY ==
--- NOTE | ~2022-10-10 | XR_ITS ---
EXAMINATION: XR ELBOW, RIGHT CLINICAL INFORMATION: Pain in right elbow COMPARISON: None TECHNIQUE: AP, lateral, and oblique views of the right elbow. FINDINGS: No fracture. No dislocation. No joint effusion. Osteophytosis of the proximal ulna. XR/XR elbow RT 2V IMPRESSION: No acute osseous abnormality. Degenerative changes.
== END 2022-10-10 10:12 | disposition home or self-care (01) ==
LOC: HO.XRAY 10:11
PROVIDERS: PCP Internal Medicine; Visit Provider Internal Medicine
DX: M25.521 Pain in right elbow (principal)
CPT/HCPCS: 73070

== ENCOUNTER 2022-11-09 07:20 | Outpatient (REF) | payer OTHER, SELFPAY ==
--- NOTE | ~2022-11-09 | MM_ITS ---
EXAMINATION: MM SCREENING DIGITAL BREAST TOMOSYNTHESIS, BILATERAL CLINICAL INFORMATION: Screening. Asymptomatic. The lifetime risk of breast cancer based on the Tyrer-Cuzick Model is 7%. COMPARISON: Mammography: 11/02/2021, 10/29/2021, 10/13/2020, 10/08/2019 TECHNIQUE: Digital breast tomosynthesis is performed in both the craniocaudal and mediolateral oblique views along with computer-aided detection (CAD). Synthesized 2D images are generated from the tomosynthesis. FINDINGS: There are scattered areas of fibroglandular density (ACR BI-RADS breast composition Category b). There are no significant masses, abnormal calcifications, or other abnormalities. Parenchymal pattern is similar to prior studies. There is no developing density or architectural abnormality. Breast tissue composition borders on predominantly fatty. The axilla and skin contours are unremarkable. No significant changes. MM/MM tomosynthesis screening BI IMPRESSION: No mammographic evidence of malignancy. ASSESSMENT: BI-RADS 2: Benign RECOMMENDATION: Routine annual mammography screening. This patient's information was entered into a reminder system with a target due date for their next mammogram.
== END 2022-11-09 07:21 | disposition home or self-care (01) ==
LOC: HO.MAMMO 07:20
PROVIDERS: PCP Internal Medicine; Visit Provider Internal Medicine
DX: Z12.31 Encounter for screening mammogram for malignant neoplasm of breast (principal)
CPT/HCPCS: 77063; 77067

== ENCOUNTER 2023-08-22 09:18 | Outpatient (AMB) | payer OTHER, SELFPAY ==
--- NOTE | 2023-08-22 09:25 | MHC.OFFVISWM ---
Intake VS Expanded 08/22/23 09:31 BP 196/84 H Blood Pressure Location Rt brachial Blood Pressure Position Sitting Pulse 75 Pulse Source Pulse Oximeter Temp 97.6 F Temperature Source Temporal Artery Scan Pulse Oximetry 97 Oxygen Delivery Method Room Air Height 4 ft 9 in Weight 117 lb 9.6 oz BMI 25.4 Body Fat % 29.3 Body Fat Mass 34.4 Fat Free Mass 83.2 Visceral Fat Rating 7.0 Body Water % 50.1 Body Water Mass 58.8 Muscle Mass/Score 79.0 Basal Metabolic Rate/Score 1,132 Intake Visit Reasons: (OV) POM 7 YEARS LRYGB 08/22/16 Allergies hydrocodone [HYDROCODONE] Allergy (Mild, Verified 08/22/23 09:29) SWELLING Medication List - Last Reconciled 08/22/23 by ROMAINE Allan calcium citrate-vitamin D3 250 mg-5 mcg (200 unit) 2 tabs PO BID hydrochlorothiazide 25 mg PO DAILY 90 days lisinopril 10 mg PO DAILY 30 days multivitamin 1 cap PO DAILY HPI HPI Comments History of Present Illness Details This?is a?57?yo female who is s/p RYGB 2015. Presents for 7 year post op visit. Weight at last visit on 08/16/2022 was 115 pounds with a BMI of 24.8, weight today is 117.6 pounds, representing a 2.6 pound weight gain with a BMI today of 25.4.? Pt reports heartburn, increasing over the past month, worse with exercise, wakes up gagging/choking. Occasionally gags even on water. No vomiting. Nonsmoker, rare EtOH, no NSAIDs (only liquid Tylenol for pain). Denies drinking carbonated beverages, a lot of citrus/acidic foods. She did take one of her BP meds this morning, did not sleep well. Present meal plan includes: 1-2 egg for breakfast has a protein bar or shake a few times a week yogurt for snack, apple or berries salad with egg and chopped chicken for dinner All meals last 20 - 30 minutes and does not drink and eat at the same time. Exercise routine includes: walks daily, adds in running occasionally or some cardio at home, usually 45 min at least Did the patient ever have any of these conditions and are they resolved or still being treated? GERD: increasing- not controlled by OTC meds DONTRELL:? resolved DM:? prediabetic before surgery? HTN:? lisinopril, HCTZ Hyperlipidemia:? resolved Post op complications:? none PFSH Medical History Chest pain Cholelithiasis Cyst Fibromyalgia GERD (gastroesophageal reflux disease) Hyperlipidemia Hypertension Intestinal malabsorption Intestinal malabsorption following gastrectomy Joint pain Mass of soft tissue of face Neck pain New daily persistent headache Pre-diabetes Pure hypercholesterolemia Shingles Uncontrolled hypertension Surgical History H/O colonoscopy H/O: hysterectomy S/P laparoscopic cholecystectomy Status post panniculectomy S/P gastric bypass Family History Father No problems noted. Mother Dementia Brother No problems noted. Sister No problems noted. Sister No problems noted. Son No problems noted. Son No problems noted. Son No problems noted. Housing: House Alcohol intake: current Alcohol intake frequency: holidays/special occasions only Alcohol type: wine and hard liquor Patient Tobacco Use Status: Never used Tobacco e-Cigarette/Vaping Use: Never Used Second Hand Smoke Exposure: No service: No Current occupational status: employed Current occupational exposures/hazards: No Cognitive needs: No Hearing needs: No Vision needs: No Physical Exam Vital Signs: Last Vital Signs Temp 97.6 F 08/22/23 09:31 Pulse 75 08/22/23 09:31 BP 196/84 H 08/22/23 09:31 Pulse Ox 97 08/22/23 09:31 Oxygen Delivery Method Room Air 08/22/23 09:31 BMI result Body Mass Index 25.4 Const General: cooperative, comfortable and no acute distress Orientation/consciousness: patient oriented x3 GI Other: soft, nontender, nondistended, no hernia, no masses Neuro General: patient oriented x3 Assessment & Plan Assessment & Plan (1) S/P gastric bypass: Comment: DOS 08/22/16, Dr. Magallon Code(s): Z98.84 - Bariatric surgery status (2) Overweight: Code(s): E66.3 - Overweight Plan Dr. Magallon aware of pt's current complaint. Will initiate pantoprazole daily and carafate BID. New meal plan discussed with pt: 8-10am Celebrate 4:1, 1 scoop in 8oz water 11am-1pm ZP bar 2-4pm ZP bar 6pm dinner- 4 forks protein, 4 forks salad/veg (or 2 forks veg + 2 forks healthy carb) Discussed eating/drinking slowly, taking 2 hours to have bars/shakes. Reviewed reflux triggers. Will also order annual labs, pt takes MVI consistently. RTC 4 weeks. New meal plan texted to pt and I encouraged her to reach out between appts with any concerns. Patient is overweight and with worsening reflux, and is not considered stable at this time. I spent a total of 30 minutes reviewing/updating records, examining the patient and counseling the patient on weight management as detailed above. Orders: Orders Complete Blood Count Auto Diff Today K91.2 - Postsurgical malabsorption, not elsewhere classified, Z90.3 - Acquired absence of stomach [part of], Z98.84 - Bariatric surgery status Ferritin Today K91.2 - Postsurgical malabsorption, not elsewhere classified, Z90.3 - Acquired absence of stomach [part of], Z98.84 - Bariatric surgery status Vitamin B12 and Folate Today K91.2 - Postsurgical malabsorption, not elsewhere classified, Z90.3 - Acquired absence of stomach [part of], Z98.84 - Bariatric surgery status IRON PROFILE Today K91.2 - Postsurgical malabsorption, not elsewhere classified, Z90.3 - Acquired absence of stomach [part of], Z98.84 - Bariatric surgery status Insulin Today K91.2 - Postsurgical malabsorption, not elsewhere classified, Z90.3 - Acquired absence of stomach [part of], Z98.84 - Bariatric surgery status C Reactive Protein Today K91.2 - Postsurgical malabsorption, not elsewhere classified, Z90.3 - Acquired absence of stomach [part of], Z98.84 - Bariatric surgery status TSH reflex Free T4 Today K91.2 - Postsurgical malabsorption, not elsewhere classified, Z90.3 - Acquired absence of stomach [part of], Z98.84 - Bariatric surgery status Vitamin B1 Today K91.2 - Postsurgical malabsorption, not elsewhere classified, Z90.3 - Acquired absence of stomach [part of], Z98.84 - Bariatric surgery status Hemoglobin A1c Today K91.2 - Postsurgical malabsorption, not elsewhere classified, Z90.3 - Acquired absence of stomach [part of], Z98.84 - Bariatric surgery status Zinc Today K91.2 - Postsurgical malabsorption, not elsewhere classified, Z90.3 - Acquired absence of stomach [part of], Z98.84 - Bariatric surgery status Vitamin A Today K91.2 - Postsurgical malabsorption, not elsewhere classified, Z90.3 - Acquired absence of stomach [part of], Z98.84 - Bariatric surgery status Medications: New sucralfate 10 mL PO BID 414 mL 3RF pantoprazole 40 mg PO DAILY 90 tabs 3RF Coding Level of Care Code Est Pt Level 4 (49474) Diagnoses S/P gastric bypass Z98.84 Overweight E66.3
[2023-08-22 09:31] VITALS: BP 196/84; PULSE 75; TEMP 36.4; O2SAT 97; BMI 25.4
== END 2023-08-22 10:14 | disposition home or self-care (01) ==
PROVIDERS: PCP Internal Medicine; Visit Provider Physician Assistant Surgical
DX: E66.3 Overweight (principal); Z68.25 Body mass index [BMI] 25.0-25.9, adult; Z98.84 Bariatric surgery status
CPT/HCPCS: 99214

== ENCOUNTER → 2023-08-22 09:18 | Outpatient (BNVA) | payer OTHER, SELFPAY | PROVIDERS: PCP Internal Medicine; Visit Provider Physician Assistant Surgical | DX: K91.2 Postsurgical malabsorption, not elsewhere classified (principal); Z90.3 Acquired absence of stomach [part of] ==

== ENCOUNTER 2023-08-23 07:54 | Outpatient (REF) | payer OTHER, SELFPAY ==
[2023-08-23 08:18] LABS: MANUAL DIFF FLAG NO
[2023-08-23 08:47] LABS: Basophils Percent Auto 0.5 % (0-2); Eosinophils Absolute Auto 0.1 X10*3/uL (0.0-0.4); Hematocrit 41.1 % (37.0-47.0); Imm Gran Abs Auto 0.02 X10*3/uL (0.00-0.03); Imm Gran Pct Auto 0.3 % (0.0-0.4); Lymphocytes Absolute Auto 1.4 X10*3/uL (1.2-4.9); Lymphocytes Percent Auto 24.2 % (20-40); Mean Corpuscular HGB Conc 31.6 g/dl (31.0-35.0); Mean Corpuscular Hemoglobin 27.3 pg (27.0-33.0); Mean Corpuscular Volume 86.2 fL (80.0-98.0); Mean Platelet Volume 10.4 fL (9.4-12.3); Monocytes Absolute Auto 0.5 X10*3/uL (0.1-1.2); Monocytes Percent Auto 8.6 % (2-11); Neutrophils Absolute Auto 3.8 x10*3/uL (2.0-8.3); Neutrophils Percent Auto 64.4 % (45-73); Platelet Count 252 X10*3/uL (160-400); Red Blood Count 4.77 X10*6/uL (4.20-5.50); Red Cell Distribution Width 13.6 % (11.0-16.0); White Blood Count 5.9 X10*3/uL (4.8-10.8)
[2023-08-23 09:29] LABS: Alanine Aminotransferase 12 U/L (0-31); Albumin Level 4.1 g/dL (3.5-5.0); Alkaline Phosphatase 97 U/L (39-117); Anion Gap 11 (12-20); Aspartate Amino Transferase 27 U/L (5-31); Blood Urea Nitrogen 18 mg/dL (9-16); C Reactive Protein 0.12 mg/dL (< or = 0.50); Carbon Dioxide 26 mmol/L (22-29); Chloride 107 mmol/L (96-108); Cholesterol 220 mg/dL (<200); Estimated Glomerular Filt Rate > 60; Glucose Fasting 93 mg/dL (60-99); HDL Cholesterol 86 mg/dL (>40); Iron 122 mcg/dL (30-160); LDL Cholesterol Calculated 114 mg/dL (<100); Percent Iron Saturation 32 % (15-50); Potassium 4.1 mmol/L (3.3-5.1); Sodium 140 mmol/L (135-145); Total Iron Binding Capacity 379 mcg/dL (228-428); Total Protein 7.1 g/dL (6.5-8.0); Triglycerides 103 mg/dL (<150); Unsaturated Iron Binding 257 ug/dL
[2023-08-23 09:32] LABS: Estimated Average Glucose 103 mg/dL; Hemoglobin A1c % 5.2 % (<6.0)
[2023-08-23 09:38] LABS: Vitamin D 25-OH Total 30.5 ng/mL (>30)
[2023-08-23 09:49] LABS: Ferritin 16 ng/mL (10-250); Insulin 5 uU/mL (2-29); TSH reflex Free T4 0.63 uIU/mL (0.32-4.0)
[2023-08-23 09:53] LABS: Folate 13.1 ng/mL (> or = 4.0); Vitamin B12 508 pg/mL (200-900)
[2023-08-25 15:54] LABS: Zinc 77 mcg/dL (60-130)
[2023-08-26 22:24] LABS: Vitamin A 51 mcg/dL (38-98)
[2023-08-27 12:18] LABS: Vitamin B1 10 nmol/L (8-30)
== END 2023-08-23 07:55 | disposition home or self-care (01) ==
LOC: HO.LAB 07:54
PROVIDERS: PCP Internal Medicine; Referring Provider Internal Medicine; Visit Provider Physician Assistant Surgical
DX: K91.2 Postsurgical malabsorption, not elsewhere classified (principal); E78.5 Hyperlipidemia, unspecified; I10 Essential (primary) hypertension; E55.9 Vitamin D deficiency, unspecified; Z98.84 Bariatric surgery status; Z90.3 Acquired absence of stomach [part of]
CPT/HCPCS: 36415; 80053; 80061; 82306; 82607; 82728; 82746; 83036; 83525; 83540; 84425; 84443; 84590; 84630; 85025; 86140

== ENCOUNTER 2023-09-12 09:10 | Outpatient (AMB) | payer OTHER, SELFPAY ==
--- NOTE | 2023-09-12 09:25 | A.OFFVIS_ITS ---
Intake VS Expanded 09/12/23 09:35 BP 178/82 H Blood Pressure Location Rt brachial Blood Pressure Position Sitting Pulse 68 Pulse Source Pulse Oximeter Temp 96.7 F L Temperature Source Tympanic Pulse Oximetry 97 Oxygen Delivery Method Room Air Height 4 ft 9 in Weight 117 lb BMI 25.3 Body Fat % 27.9 Body Fat Mass 32.6 Fat Free Mass 84.2 Visceral Fat Rating 6.0 Body Water % 50.9 Body Water Mass 59.6 Muscle Mass/Score 79.8 Basal Metabolic Rate/Score 1,141 Intake Visit Reasons: (OV) POM 7 YEARS LRYGB 08/22/16 Allergies hydrocodone [HYDROCODONE] Allergy (Mild, Verified 08/22/23 09:29) SWELLING Medication List - Last Reconciled 09/12/23 by ROMAINE Allan calcium citrate-vitamin D3 250 mg-5 mcg (200 unit) 2 tabs PO BID hydrochlorothiazide 25 mg PO DAILY 90 days lisinopril 10 mg PO DAILY 30 days multivitamin 1 cap PO DAILY pantoprazole 40 mg PO BID HPI HPI Comments History of Present Illness Details Pt seen in followup for reflux sx after gastric bypass 7+ years ago. At last visit was started on PPI/carafate and given the following meal plan: 8-10am Celebrate 4:1, 1 scoop in 8oz joe er 11am-1pm ZP bar 2-4pm ZP bar 6pm dinner- 4 forks protein, 4 forks marcela ad/veg (or 2 forks veg + 2 forks healthy carb) Since last visit she reports that symptoms are overall improved; however, she still wakes up gagging sometimes and continues to struggle with even swallowing water easily sometimes. She tries to make sure she has several hours between dinner and bedtime. She exercises in the morning. Sleeps slightly elevated, not flat. Pt reports she is uncertain about her blood pressure medication regimen, planning to check with her PCP at her appt this week. [facility] Medical History (Updated 09/12/23 @ 09:57 by ROMAINE Allan) Neck pain Chest pain New daily persistent headache Uncontrolled hypertension Pure hypercholesterolemia Mass of soft tissue of face Cyst Shingles Joint pain Hyperlipidemia Fibromyalgia Pre-diabetes Hypertension GERD (gastroesophageal reflux disease) Intestinal malabsorption following gastrectomy Intestinal malabsorption Cholelithiasis Surgical History H/O colonoscopy H/O: hysterectomy S/P laparoscopic cholecystectomy Status post panniculectomy S/P gastric bypass Family History Father No problems noted. Mother Dementia Brother No problems noted. Sister No problems noted. Sister No problems noted. Son No problems noted. Son No problems noted. Son No problems noted. Social History Housing: House Alcohol intake: current Alcohol intake frequency: holidays/special occasions only Alcohol type: wine and hard liquor Patient Tobacco Use Status: Never used Tobacco e-Cigarette/Vaping Use: Never Used Second Hand Smoke Exposure: No service: No Current occupational status: employed Current occupational exposures/hazards: No Cognitive needs: No Hearing needs: No Vision needs: No Physical Exam Vital Signs: Last Vital Signs Temp 96.7 F L 09/12/23 09:35 Pulse 68 09/12/23 09:35 BP 178/82 H 09/12/23 09:35 Pulse Ox 97 09/12/23 09:35 Oxygen Delivery Method Room Air 09/12/23 09:35 BMI result Body Mass Index 23.6 Assessment & Plan Assessment & Plan (1) GERD (gastroesophageal reflux disease): Code(s): K21.9 - Gastro-esophageal reflux disease without esophagitis (2) Overweight: Code(s): E66.3 - Overweight (3) S/P gastric bypass: Comment: DOS 08/22/16, Dr. Magallon Code(s): Z98.84 - Bariatric surgery status Plan Labs reviewed today, suggested a vit D supplement which pt would like to purchase OTC. Increase PPI Will schedule UGI to evaluate gastric bypass anatomy considering pt's symptoms have not resolved with PPI BID and carafate BID. She seems to be avoiding any reflux triggers and following meal plan as directed. Also advised moving meal to lunchtime, and having shake at dinnertime to see if symptoms improve. Next visit after UGI to review results. Pt is also due for colonoscopy and may ask GI provider about performing endoscopy at the time as well. Patient is overweight with ongoing reflux symptoms and is not considered stable at this time. I spent a total of 30 minutes reviewing/updating records, examining the patient and counseling the patient on weight management as detailed above. Orders: Orders FL upper GI w air Today K21.9 - Gastro-esophageal reflux disease without esophagitis, Z98.84 - Bariatric surgery status Coding Level of Care Code Est Pt Level 4 (91431) Diagnoses GERD (gastroesophageal reflux disease) K21.9 Overweight E66.3 S/P gastric bypass Z98.84
[2023-09-12 09:35] VITALS: BP 178/82; PULSE 68; TEMP 35.9; O2SAT 97; BMI 25.3
== END 2023-09-12 10:06 | disposition home or self-care (01) ==
PROVIDERS: PCP Internal Medicine; Visit Provider Physician Assistant Surgical
DX: K21.9 Gastro-esophageal reflux disease without esophagitis (principal); E66.3 Overweight; Z98.84 Bariatric surgery status; Z68.25 Body mass index [BMI] 25.0-25.9, adult
CPT/HCPCS: 99214

== ENCOUNTER → 2023-09-12 09:10 | Outpatient (BNVA) | payer OTHER, SELFPAY | PROVIDERS: PCP Internal Medicine; Visit Provider Physician Assistant Surgical ==

== ENCOUNTER 2023-09-19 07:26 | Outpatient (AMB) | payer OTHER, SELFPAY ==
--- NOTE | 2023-09-19 07:37 | A.OFFPC_ITS ---
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 Accompanied by: Self / Same As Patient Allergies hydrocodone [HYDROCODONE] Allergy (Mild, Verified 09/19/23 07:51) SWELLING Medication List - Last Reconciled 09/19/23 by Chantelle Mayen MD calcium citrate-vitamin D3 250 mg-5 mcg (200 unit) 2 tabs PO BID hydrochlorothiazide 25 mg PO DAILY 90 days lisinopril 10 mg PO DAILY 30 days multivitamin 1 cap PO DAILY pantoprazole 40 mg PO BID Tobacco use date assessed: 01/18/23 Dental Screening Dental Screen Date: 09/19/23 Did you have a dental visit in the last 12 months?: Yes Did you have a dental problem in the last 6 months where you did not have access to dental care?: No Was dental information given to patient?: Patient has dentist HPI HPI Comments History of Present Illness Details This is a 57 year female that comes for her physical exam. Last mammogram September 2022 and was normal. Last colonoscopy was 2015 and was normal. She complains of severe GERD even with pantoprazole. No need for Pap smear due to hysterectomy. Blood pressure still elevated and I will increase lisinopril and blood pressure will be recheck in 3 weeks by nurse navigator. Had bone density 2022 showing osteopenia and is on calcium with vitamin-D. [facility] Medical History Neck pain Chest pain New daily persistent headache Uncontrolled hypertension Pure hypercholesterolemia Mass of soft tissue of face Cyst Shingles Joint pain Hyperlipidemia Fibromyalgia Pre-diabetes Hypertension GERD (gastroesophageal reflux disease) Intestinal malabsorption following gastrectomy Intestinal malabsorption Cholelithiasis Surgical History H/O colonoscopy H/O: hysterectomy S/P laparoscopic cholecystectomy Status post panniculectomy S/P gastric bypass Family History (Updated 09/19/23 @ 07:58 by Chantelle Mayen MD) Father Prostate cancer Mother Dementia Brother No problems noted. Sister No problems noted. Sister No problems noted. Son No problems noted. Son No problems noted. Son No problems noted. Social History Housing: House Alcohol intake: current Alcohol intake frequency: holidays/special occasions only Alcohol type: wine and hard liquor Patient Tobacco Use Status: Never used Tobacco e-Cigarette/Vaping Use: Never Used Second Hand Smoke Exposure: No service: No Current occupational status: employed Current occupational exposures/hazards: No Cognitive needs: No Hearing needs: No Vision needs: No Questionnaire Thrive Questionnaire Date Thrive assessed: 01/18/23 ЕЛЕНА-7 AMB Questionnaire ЕЛЕНА-7 Date ЕЛЕНА - 7 assessed: 01/18/23 Source: Developed by Drs. Olvin Kahn, Mandi Andres, Renzo Padilla and colleagues, with an educational agnieszka from [employer]. Review of Systems Const All systems reviewed & are unremarkable except as noted in HPI and below Eyes Reports no additional complaints, Denies change in vision and Denies other visual disturbances Card Denies chest pain at rest, Denies chest pain with activity, Denies edema, Denies irregular heart rhythm, Denies claudication, Denies dyspnea, Denies dyspnea on exertion, Denies orthopnea, Denies paroxysmal nocturnal dyspnea and Denies slow heart rate Resp Denies cough, Denies dyspnea and Denies dyspnea on exertion GI Denies abdominal pain, Denies change in bowel habits, Denies excessive flatus, Denies nausea and Denies vomiting Denies urinary incontinence, Denies urinary hesitancy and Denies urinary urgency Musc Denies abnormal gait, Denies atrophy, Denies deformity and Denies limited range of motion Skin/Breast Denies bleeding lesions, Denies changing lesions and Denies rash Neuro Denies abnormal gait, Denies behavioral changes, Denies confusion and Denies lack of coordination Psych Denies behavioral changes and Denies confusion Physical exam (Primary Care) Vital Signs: Last Vital Signs BP 168/96 H 09/19/23 07:39 BMI result Body Mass Index 25.1 Tobacco/Smoking Status: Tobacco use Status Tobacco use date assessed 01/18/23 09/19/23 07:44 Patient Tobacco Use Status Never used Tobacco 09/19/23 07:44 Tobacco use type 01/18/23 08:20 e-Cigarette/Vaping Use Never Used 09/19/23 07:44 Thrive Assessment: Date of Thrive Assessment Date Thrive assessed 01/18/23 09/19/23 07:44 Const General: No confusion Orientation/consciousness: patient oriented x3 and No confusion HENMT Head: Yes normal to inspection, Yes normocephalic and Yes atraumatic Ears: external ears normal Eyes General: appearance normal, both eyes and all related structures Eyelids: Yes eyelids normal Conjunctivae: conjunctivae normal Neck Neck: Yes normal visual inspection and Yes supple Resp Effort & Inspection: normal respiratory effort Auscultation: clear to auscultation bilaterally Cardio Jugular venous distension: no JVD Rate: regular rate Rhythm: regular rhythm Heart sounds: S1 normal heart sound present and S2 normal heart sound present GI Inspection: Yes normal to inspection Palpation (GI): Soft to palpation and nontender Auscultation: normal bowel sounds Skin General skin exam: no rashes or lesions noted Neuro General: patient oriented x3, no focal motor deficits and No confusion Extrem General: Yes full ROM Psych Appearance: grossly normal Office Procedures Flu Questionnaire Does the patient have a severe egg allergy?: No Immunizations flu vacc [id number] 6mos up(PF) 60 mcg(15 mcgx4)/0.5 mL IM syringe Performing Provider: Chantelle Mayen MD Performing Location: [facility] Documented (not given) by: MUNIRA Alvarez on 09/19/23 08:15 Reason Not Given: Received Previously Assessment and Plan Assessment & Plan (1) Physical exam: Code(s): Z00.00 - Encounter for general adult medical examination without abnormal findings Plan: Repeat in a year. Orders: Orders Comprehensive Met. Panel 6 Months K21.9 - Gastro-esophageal reflux disease without esophagitis Lipid Panel 6 Months E78.5 - Hyperlipidemia, unspecified Influenza [id number] Immunization Today Z23 - Encounter for immunization Referrals Gastroenterology Referral K21.9 - Gastro-esophageal reflux disease without esophagitis Medications: New lisinopril 20 mg PO DAILY 90 tabs 1RF 90 days I10 - Essential (primary) hypertension Refilled hydrochlorothiazide 25 mg PO DAILY 90 tabs 1RF 90 days Discontinued lisinopril Discontinued Reason: Patient Completed Course 10 mg PO DAILY 30 days 30 tabs 6RF Coding Level of Care Code Est Pt Prev Care 40-64y(20238) Diagnoses Physical exam Z00.00 Time Spent (min) 31
[2023-09-19 07:39] VITALS: BP 168/96; BMI 25.1
[2023-09-19 08:22] VITALS: BP 160/95
== END 2023-09-19 08:06 | disposition home or self-care (01) ==
PROVIDERS: Visit Provider Internal Medicine
DX: Z00.00 Encounter for general adult medical examination without abnormal findings (principal)
CPT/HCPCS: 99396

== ENCOUNTER 2023-09-27 07:31 | Outpatient (AMB) | payer OTHER, SELFPAY ==
--- NOTE | 2023-09-27 07:38 | A.OFFVIS_ITS ---
Intake Vital Signs 09/27/23 07:50 Height 4 ft 9 in Weight 116 lb BMI 25.1 BP 117/74 Blood Pressure Location Lt brachial Position Sitting Pulse 70 Intake Visit Reasons: Gastroesophageal reflux disease (GERD) Intake Note: Patient new consult for 4th pre colonoscopy and 2nd EGD screening and GERD Patient cc: nauseas, acid reflex gaging at night time, some swallowing problems, and denies any other GI issues, Also she was Dr. Gardner former patient. 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 Gardner presents with persistent acid reflux-[place] She was to have colonoscopy- has not yet been scheduled- s/p gastric bypass, she had been seen recently bariatric stay had begun her pantoprazole 40 mg daily-much improvement in her symptoms with dietary modifications as well She has normal bowel pattern She has cardiac issues was consulted with Cardiology in 2021 No nausea, vomiting, hematemesis, hematochezia fever chills UGI series has been scheduled by Dr. Velasquez- pending [facility] Medical History (Updated 09/27/23 @ 08:56 by Shwetha Enrique PA-C) Neck pain Chest pain New daily persistent headache Uncontrolled hypertension Pure hypercholesterolemia Mass of soft tissue of face Cyst Shingles Joint pain Hyperlipidemia Fibromyalgia Pre-diabetes Hypertension GERD (gastroesophageal reflux disease) Intestinal malabsorption following gastrectomy Intestinal malabsorption Cholelithiasis Surgical History History of esophagogastroduodenoscopy (EGD) H/O colonoscopy H/O: hysterectomy S/P laparoscopic cholecystectomy Status post panniculectomy S/P gastric bypass Family History Father Prostate cancer Mother Dementia Brother No problems noted. Sister No problems noted. Sister No problems noted. Son No problems noted. Son No problems noted. Son No problems noted. Social History Housing: House Alcohol intake: current Alcohol intake frequency: holidays/special occasions only Alcohol type: wine and hard liquor Patient Tobacco Use Status: Never used Tobacco e-Cigarette/Vaping Use: Never Used Second Hand Smoke Exposure: No service: No Current occupational status: employed Current occupational exposures/hazards: No Cognitive needs: No Hearing needs: No Vision needs: No Physical Exam Vital Signs: Last Vital Signs Pulse 70 09/27/23 07:50 BP 117/74 09/27/23 07:50 BMI result Body Mass Index 25.1 Const General: cooperative, healthy appearing, comfortable and no acute distress Orientation/consciousness: patient oriented x3 Limitations: no limitations Eyes Sclerae: sclerae normal Resp Effort & Inspection: normal respiratory effort and able to speak in complete sentences Auscultation: clear to auscultation bilaterally, no rales, no rhonchi and no wheezes Cardio Rate: regular rate Rhythm: abnormal rhythm regularly irregular Heart sounds: S1 normal heart sound present and S2 normal heart sound present GI Palpation (GI): Soft to palpation and nontender Auscultation: normal bowel sounds Skin General skin exam: no rashes or lesions noted Neuro General: patient oriented x3 Extrem General: Yes full ROM Psych Appearance: grossly normal and well kempt Mental Status: mental status grossly normal Speech and movement: Normal speech and movement present and Clear speech present Affect: normal affect Attitude: cooperative Thought process: Normal thought process present Thought content: Normal thought content present Insight: Good insight present (Psych) Judgement: Good judgement present (Psych) Assessment & Plan Assessment & Plan (1) Family history of colon cancer: Comment: M- grandparent- Code(s): Z80.0 - Family history of malignant neoplasm of digestive organs (2) GERD (gastroesophageal reflux disease): Comment: christiano Code(s): K21.9 - Gastro-esophageal reflux disease without esophagitis Plan: reflux precautions (3) S/P gastric bypass: Comment: DOS 08/22/16, Dr. Magallon Code(s): Z98.84 - Bariatric surgery status Plan 3 year repeat colonoscopy Orders: Orders EGD/Duson Combo - GI Use Only Today K21.9 - Gastro-esophageal reflux disease without esophagitis, Z80.0 - Family history of malignant neoplasm of digestive organs, Z98.84 - Bariatric surgery status Medications: New polyethylene glycol 3350 (Miralax) Take as directed by mouth the day before your procedure. 238 grams PO ONCE 1 day 238 grams 0RF laxative effect bisacodyl (Dulcolax (bisacodyl)) Day before procedure, prep day Take 4 tablets by mouth upon awakening followed by large glass of water 20 mg (4 x 5 mg) PO ONCE 1 day 4 tabs 0RF colonoscopy prep Z12.11 - Encounter for screening for malignant neoplasm of colon Patient Instructions: reflux precautions-uprite 2-3 hours after eating-small portions continue pantoprazole as prescribed- schedule EGD/ colonoscopy Coding Level of Care Code New Pt Level 3 (26357) Diagnoses Family history of colon cancer Z80.0 GERD (gastroesophageal reflux disease) K21.9 S/P gastric bypass Z98.84 Time Spent (min) 35
[2023-09-27 07:50] VITALS: BP 117/74; PULSE 70; BMI 25.1
== END 2023-09-27 08:15 | disposition home or self-care (01) ==
PROVIDERS: PCP Internal Medicine; Visit Provider Physician Assistant
DX: Z80.0 Family history of malignant neoplasm of digestive organs (principal); K21.9 Gastro-esophageal reflux disease without esophagitis; Z98.84 Bariatric surgery status
CPT/HCPCS: 99203

== ENCOUNTER → 2023-09-27 07:31 | Outpatient (BNVA) | payer OTHER, SELFPAY | PROVIDERS: PCP Internal Medicine; Visit Provider Physician Assistant ==

== ENCOUNTER 2023-09-28 08:25 | Day surgery (SDC) | payer OTHER, SELFPAY ==
--- NOTE | 2023-09-28 08:38 | MHC.SHP ---
Pre-Procedural Eval Section A Date of Service: 09/28/23 Section B Chief Complaint: Family history of malignant neoplasm of digestive Details of Present Illness: gerd Relevant Family History (Specify if Yes): No Relevant Social History: None Present Medications: see Short Stay Collaborative assessment Medical History: Significant History (Cholelithiasis Intestinal malabsorption) History of Previous Operations: Relevant previous surgery/procedure and date(s) (S/P gastric bypass Status post panniculectomy) Allergies: Allergies Allergy/AdvReac Type Severity Reaction Status Date / Time hydrocodone [HYDROCODONE] Allergy Mild SWELLING Verified 09/27/23 07:38 Review of Systems Sugical H&P ROS: Negative: Constitution, Cardiovascular, Respiratory, Neurological, Psychiatric, Hem-Onc, Allergic/Immunologic, Gastrointestinal, Genitourinary, Musculoskeletal, Integumentary, Endocrine and Eyes/Ears/Nose/Throat Exam Surgical H&P Exam: Normal: HEENT, Normal: Heart, Normal: Lungs, Normal: Extremities, Normal: Abdomen, Normal: Skin and Normal: Neurological Plan Diagnosis/Plan: Unchanged I have reviewed the history and physical and performed a pertinent physical examination on my patient. No changes have occurred unless specified. Time Spent With Patient Time: Total time managing care of this patient today ____ minutes.
--- NOTE | 2023-09-28 08:46 | HO.ANESPROP2 ---
FORMERLY [facility], [facility] Active Problems Active Problems: All Active Problems (Updated 09/27/23 @ 08:56 by Shwetha Enrique PA-C) Family history of colon cancer (Acute) GERD (gastroesophageal reflux disease) (Acute) Overweight (Acute) Osteopenia (Acute) Right elbow pain (Acute) Physical exam (Acute) Neck pain (Acute) Essential hypertension (Acute) Precordial chest pain (Acute) Chest pain (Acute) New daily persistent headache (Acute) Uncontrolled hypertension (Acute) Pure hypercholesterolemia (Acute) Mass of soft tissue of face (Acute) Cyst (Acute) Shingles (Acute) S/P gastric bypass (Acute) Intestinal malabsorption following gastrectomy (Acute) Cholelithiasis (Acute) Intestinal malabsorption (Acute) Past Medical History Medical History (Updated 09/27/23 @ 08:56 by Shwetha Enrique PA-C) Neck pain Chest pain New daily persistent headache Uncontrolled hypertension Pure hypercholesterolemia Mass of soft tissue of face Cyst Shingles Joint pain Hyperlipidemia Fibromyalgia Pre-diabetes Hypertension GERD (gastroesophageal reflux disease) Intestinal malabsorption following gastrectomy Intestinal malabsorption Cholelithiasis Patient : No Family History Family History Father Prostate cancer Mother Dementia Brother No problems noted. Sister No problems noted. Sister No problems noted. Son No problems noted. Son No problems noted. Son No problems noted. Family history of problems with anesthesia: No Surgical History Surgical History History of esophagogastroduodenoscopy (EGD) H/O colonoscopy H/O: hysterectomy S/P laparoscopic cholecystectomy Status post panniculectomy S/P gastric bypass History of Problems with Anesthesia: No Social History Social History Housing: House Alcohol intake: current Alcohol intake frequency: holidays/special occasions only Alcohol type: wine and hard liquor Patient Tobacco Use Status: Never used Tobacco e-Cigarette/Vaping Use: Never Used Second Hand Smoke Exposure: No Advance Directives: No Advance Directives Information Provided: Yes service: No Current occupational status: employed Current occupational exposures/hazards: No Cognitive needs: No Hearing needs: No Vision needs: No Meds Allergies Allergy/AdvReac Type Severity Reaction Status Date / Time hydrocodone [HYDROCODONE] Allergy Mild SWELLING Verified 09/27/23 07:38 Home Medications Medication Instructions Recorded Confirmed Last Taken Type multivitamin 1 cap PO DAILY 06/26/20 09/19/23 Unknown History pantoprazole 40 mg tablet,delayed 40 mg PO BID 09/12/23 09/19/23 Unknown History release Exam Airway Mallampati Class: II TM Dist: >3cm Neck ROM: Full Loose/Missing/Broken Teeth: No Heart: rrr Lungs: clear Assessment and Plan Final Anesthetic Review Family History of Problems with Anesthesia: No History of Problems with Anesthesia: No NPO: Yes ASA Class: II Final Preanesthetic Review: No Changes in Pt Med Stat, Meds/Allgs Chart Reviewed, Consent Obtained/Reviewed and Anes Risks/Benef Reviewed Patient Risk: Intermediate Procedure Risk: Low Anesthetic Plan Anesthetic Plan: MAC: Disposition: Standard PACU
[2023-09-28 09:01] VITALS: BP 117/69; PULSE 75; RESP 18; TEMP 36.3; O2SAT 98
--- NOTE | 2023-09-28 09:07 | W.PM.OPN ---
Operative Note Operative Note Date of Service: 09/28/23 Narrative: Operative Information Procedure Description: EGD, Colonoscopy Indication: GERD,s creening, Anesthesia: MAC FLEXIBLE TRANSORAL UPPER GASTROINTESTINAL ENDOSCOPY AND COLONOSCOPY PROCEDURE NOTE UPPER ENDOSCOPY Consent: Indications for the procedure and potential complications of bleeding, perforation, reaction to medications and missed diagnosis were discussed with the patient and informed consent was obtained. Instrument: Olympus GIF H 190 J mid size upper endoscope Monitoring: Vital signs and clinical assessment, continuous EKG monitoring, Pulse oximetry, Carbon Dioxide monitoring and blood pressure monitoring were done throughout the procedure. Procedure: The patient was placed in the left lateral decubitis position and pre-procedure medications were administered and a bite block was placed. The endoscope was inserted into the mouth and advanced under direct vision to the Jejunum, hx of gastric bypass. A careful inspection was made as the upper endoscope was withdrawn including a retroflexed examination of the proximal stomach; Findings and interventions are described below. Findings: Larynx:normal Esophagus: GE junction at 31 cm, diaphragm hiatus at 31 cm, lax LES, bx taken from GEJ which was irregular, and also distal and proximal esophagus Stomach pouch: retained stple removed, several fundic gland appearing polyps noted, one was >1 cm and removed with cold snare, random bx also taken from the pouch Jejunum: Normal Intervention: Biopsies as noted above, foreign body removal COLONOSCOPY Instrument: Olympus variable stiffness pediatric scope 190L Colonoscopy Monitoring: Vital signs and clinical assessment, continuous EKG monitoring, Pulse oximetry, Carbon Dioxide monitoring and blood pressure monitoring were done throughout the procedure. Colon withdrawal time was 11 minutes. Procedure: The patient was placed in the left lateral decubitis position and pre-procedure medications were administered. After a digital rectal examination of the ano-rectum, the video colonoscope was inserted into the rectum and advanced through the colon to the cecum/TI. The colonoscope was slowly withdrawn in a retrograde panoramic fashion and the colon mucosa was carefully examined including a retroflexed view of the rectum. Findings and interventions are described below. Procedure Difficulty:easy Findings: Terminal Ileum-normal Cecum:normal Ascending Colon: 10-11 mm sessile polyp removed with cold snare Transverse Colon - 6-7 mm sessile polyp removed with cold forceps Descending Colon:normal Sigmoid Colon: normal Rectum: Retroflexion with small internal hemorrhoids, grade I Anorectum - normal Colon preparation: [place] Bowel Preparation Scale Right colon; 2 Transverse colon: 2 Left colon; 2 (0 = Unprepared colon segment with mucosa not seen due to solid stool that cannot be cleared. 1 = Portion of mucosa of the colon segment seen, but other areas of the colon segment not well seen due to staining, residual stool and/or opaque liquid. 2 = Minor amount of residual staining, small fragments of stool and/or opaque liquid, but mucosa of colon segment seen well. 3 = Entire mucosa of colon segment seen well with no residual staining, small fragments of stool or opaque liquid) Impression and Post Procedure Diagnosis: Endoscopy Findings: lax LES gastric polyps foreign body Colonoscopy Findings: polyps internal hemorrhoids Plan: Await Pathology results Repeat Colonoscopy in 5 years due to polyps and FH or earlier if clinically indicated High fiber diet leaflet avoid straining at stool, epsom salts and sitz bath, anusol supps or cream GERd precautions, change PPi to capsule, open capsule and mix granules with apple sauce Above findings were reviewed with the patient and relevant handouts were provided if indicated.
[2023-09-28 09:46] VITALS: BP 94/60; PULSE 75; RESP 20; TEMP 36.1; O2SAT 98
[2023-09-28 10:00] VITALS: BP 105/66; PULSE 51; RESP 18; TEMP 36.2; O2SAT 99
== END 2023-09-28 10:58 | disposition home or self-care (01) ==
PROVIDERS: PCP Internal Medicine; Visit Provider Internal Medicine Gastroenterology
PROC: (CPT 45385; principal; 2023-09-28 10:10)
DX: Z12.11 Encounter for screening for malignant neoplasm of colon (principal); Z80.0 Family history of malignant neoplasm of digestive organs; D12.2 Benign neoplasm of ascending colon; D12.3 Benign neoplasm of transverse colon; K64.0 First degree hemorrhoids; K21.9 Gastro-esophageal reflux disease without esophagitis; K91.2 Postsurgical malabsorption, not elsewhere classified; K95.89 Other complications of other bariatric procedure; Y83.8 Other surgical procedures as the cause of abnormal reaction of the patient, or of later complication, without mention of misadventure at the time of the procedure; Z98.84 Bariatric surgery status; Z18.9 Retained foreign body fragments, unspecified material; K22.4 Dyskinesia of esophagus; K31.7 Polyp of stomach and duodenum; K44.9 Diaphragmatic hernia without obstruction or gangrene; R07.9 Chest pain, unspecified; I10 Essential (primary) hypertension; E78.00 Pure hypercholesterolemia, unspecified; M79.7 Fibromyalgia; R73.03 Prediabetes; Z79.899 Other long term (current) drug therapy; Z90.49 Acquired absence of other specified parts of digestive tract
CPT/HCPCS: 45385; 45380; 43251; 43239; 88305; 88342; J2704

== ENCOUNTER → 2023-09-28 08:25 | Outpatient (BNV) | payer OTHER, SELFPAY | PROVIDERS: PCP Internal Medicine; Visit Provider Internal Medicine Gastroenterology | DX: Z12.11 Encounter for screening for malignant neoplasm of colon (principal); D12.3 Benign neoplasm of transverse colon; D12.2 Benign neoplasm of ascending colon; K64.0 First degree hemorrhoids; K21.9 Gastro-esophageal reflux disease without esophagitis; K31.7 Polyp of stomach and duodenum; T18.2XXA Foreign body in stomach, initial encounter | CPT/HCPCS: 43239; 43247; 43251; 45380; 45385 ==

== ENCOUNTER 2023-10-11 07:27 | Outpatient (AMB) | payer OTHER, SELFPAY ==
--- NOTE | 2023-10-11 07:30 | MHC.OFFVIS ---
Intake Vital Signs 10/11/23 07:31 10/11/23 07:36 Height 4 ft 10 in Weight 115 lb BMI 24.0 BP 184/83 H 155/77 H Blood Pressure Location Lt brachial Rt brachial Position Sitting Sitting Pulse 58 58 Intake Visit Reasons: s/p Egd/colon Giordano Intake Note: Yana presents in the office as a follow up egd and colo. CC: She states that she is not having any concerns since the procedures other than she has a rash on her chest. 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 She is begun omeprazole daily open capsules with much better response. She has no GI complaints today Appetite is good Bowels are normal Reviewed procedure report, pathology and recommendation No nausea, vomiting hematemesis, hematochezia fever chills PFSH Medical History Neck pain Chest pain New daily persistent headache Uncontrolled hypertension Pure hypercholesterolemia Mass of soft tissue of face Cyst Shingles Joint pain Hyperlipidemia Fibromyalgia Pre-diabetes Hypertension GERD (gastroesophageal reflux disease) Intestinal malabsorption following gastrectomy Intestinal malabsorption Cholelithiasis Surgical History History of esophagogastroduodenoscopy (EGD) (09/28/23) H/O colonoscopy (09/28/23) H/O: hysterectomy S/P laparoscopic cholecystectomy Status post panniculectomy S/P gastric bypass Family History Father Prostate cancer Mother Dementia Brother No problems noted. Sister No problems noted. Sister No problems noted. Son No problems noted. Son No problems noted. Son No problems noted. Social History Housing: House Alcohol intake: current Alcohol intake frequency: does not drink Alcohol type: wine and hard liquor Patient Tobacco Use Status: Never used Tobacco e-Cigarette/Vaping Use: Never Used Second Hand Smoke Exposure: No service: No Current occupational status: employed Current occupational exposures/hazards: No Cognitive needs: No Hearing needs: No Vision needs: No Review of Systems Const All systems reviewed & are unremarkable except as noted in HPI and below Card Denies chest pain and Denies dyspnea Resp Denies dyspnea GI Denies abdominal pain, Denies heartburn, Denies diarrhea and Denies nausea Physical Exam Vital Signs: Last Vital Signs Pulse 58 10/11/23 07:36 BP 155/77 H 10/11/23 07:36 BMI result Body Mass Index 24.0 Const General: cooperative, healthy appearing, comfortable and well groomed Orientation/consciousness: patient oriented x3 Limitations: no limitations Eyes Sclerae: sclerae normal Resp Effort & Inspection: normal respiratory effort and able to speak in complete sentences Neuro General: patient oriented x3 Extrem General: Yes full ROM Psych Appearance: grossly normal and well kempt Mental Status: mental status grossly normal Speech and movement: Normal speech and movement present Affect: normal affect Attitude: cooperative Thought process: Normal thought process present Thought content: Normal thought content present Insight: Good insight present (Psych) Judgement: Good judgement present (Psych) Results Reviewed Results Reviewed: Impression and Post Procedure Diagnosis: Endoscopy Findings: lax LES gastric polyps foreign body Colonoscopy Findings: polyps internal hemorrhoids Plan: Await Pathology results Repeat Colonoscopy in 5 years due to polyps and FH or earlier if clinically indicated High fiber diet leaflet avoid straining at stool, epsom salts and sitz bath, anusol supps or cream GERd precautions, change PPi to capsule, open capsule and mix granules with apple sauce Above findings were reviewed with the patient and relevant handouts were provided if indicated. Diagnosis A. Stomach, pouch, biopsy: Oxyntic mucosa with mild chronic inactive inflammation; no Helicobacter organisms seen. B. Stomach, ?fundic gland polyp?, biopsy: Fundic gland polyp with background mild chronic inactive inflammation; no Helicobacter organisms seen. C. GE junction, biopsy: - Cardiofundic-type mucosa with mild chronic inactive inflammation; no intestinal metaplasia seen. - Squamous mucosa within normal limits. D. Esophagus, distal, biopsy: - Cardiofundic-type mucosa with mild chronic inactive inflammation; no intestinal metaplasia seen. - Squamous epithelium within normal limits. E. Esophagus, proximal, biopsy: Squamous epithelium within normal limits; no inflammation seen. F. Colon, ascending, polypectomy: Fragments of tubular adenoma; negative for high-grade dysplasia or carcinoma. G. Colon, transverse, polypectomy: Tubular adenoma; negative for high-grade dysplasia or carcinoma. Clinical History Pre-Op Dx: GERD, fhx/o CRC, colon cancer screening Post-Op Dx: Incompetent LES, fundic gland polyps, foreign body (staple, S/P gastric bypass), colon polyps, hemorrhoids Microscopic Description A-G. Microscopic sections reviewed. Immunostain for H. pylori is non-reactive (A and B). Material Received A. Gastric pouch bx's B. Fundic gland polyp C. GE junction bx's D. Distal esophagus bx's E. Proximal esophagus bx's Patient: Yana Yan Age/Sex: 57/F MR#: [id number] Page 1 of 2 Assessment & Plan Assessment & Plan (1) Family history of colon cancer: Comment: M- grandparent- Code(s): Z80.0 - Family history of malignant neoplasm of digestive organs (2) GERD (gastroesophageal reflux disease): Comment: Symptoms much improved with omeprazole open capsule Code(s): K21.9 - Gastro-esophageal reflux disease without esophagitis Plan: continue ppi - open capsules- (3) Tubular adenoma of colon: Comment: History colon polyps, Code(s): D12.6 - Benign neoplasm of colon, unspecified Plan: repeat colon 5year Plan 5 year repeat continue omeprazole 40 mg- open capsule s/p gastrric bypass Patient Instructions: Continue omeprazole daily, open capsules put in applesauce Reflux precautions call with any concerns Repeat asymptomatic colonoscopy 5 years due to history colon polyps Appreciate the opportunity assist in the care this pleasant patient Coding Level of Care Code Est Pt Level 3 (61042) Diagnoses Family history of colon cancer Z80.0 GERD (gastroesophageal reflux disease) K21.9 Tubular adenoma of colon D12.6 Time Spent (min) 25
[2023-10-11 07:31] VITALS: BP 184/83; PULSE 58; BMI 24.0
[2023-10-11 07:36] VITALS: BP 155/77; PULSE 58
== END 2023-10-11 08:49 | disposition home or self-care (01) ==
PROVIDERS: PCP Internal Medicine; Visit Provider Physician Assistant
DX: Z80.0 Family history of malignant neoplasm of digestive organs (principal); K21.9 Gastro-esophageal reflux disease without esophagitis; D12.6 Benign neoplasm of colon, unspecified
CPT/HCPCS: 99213

== ENCOUNTER → 2023-10-11 07:27 | Outpatient (BNVA) | payer OTHER, SELFPAY | PROVIDERS: PCP Internal Medicine; Visit Provider Physician Assistant ==

== ENCOUNTER 2023-11-16 07:25 | Outpatient (REF) | payer OTHER, SELFPAY ==
--- NOTE | ~2023-11-16 | MM_ITS ---
EXAMINATION: MM SCREENING DIGITAL BREAST TOMOSYNTHESIS, BILATERAL CLINICAL INFORMATION: Screening. Asymptomatic. History of breast cancer in sister at age 39. COMPARISON: Mammography: 11/09/2022, 11/02/2021, 10/29/2021, 10/13/2020, 10/08/2019 TECHNIQUE: Digital breast tomosynthesis is performed in both the craniocaudal and mediolateral oblique views along with computer-aided detection (CAD). Synthesized 2D images are generated from the tomosynthesis. FINDINGS: There are scattered areas of fibroglandular density (ACR BI-RADS breast composition Category b). There are no suspicious masses, suspicious grouped calcifications, or areas of architectural distortion in either breast. There are stable benign dystrophic appearing calcifications in both breasts. The parenchymal pattern is stable from prior exams. There are no skin or axillary abnormalities. MM/MM tomosynthesis screening BI IMPRESSION: No mammographic evidence of malignancy. ASSESSMENT: BI-RADS BI-RADS 2 - Benign Findings RECOMMENDATION: Routine annual mammography screening. 1 year F/U This examination should not preclude the clinical evaluation of a suspicious palpable abnormality. This patient's information was entered into a reminder system with a target due date for their next mammogram.
== END 2023-11-16 07:26 | disposition home or self-care (01) ==
LOC: HO.MAMMO 07:25
PROVIDERS: PCP Internal Medicine; Visit Provider Internal Medicine
DX: Z12.31 Encounter for screening mammogram for malignant neoplasm of breast (principal)
CPT/HCPCS: 77063; 77067

== ENCOUNTER → 2023-11-16 07:30 | Outpatient (BNV) | payer OTHER, SELFPAY | PROVIDERS: PCP Internal Medicine; Visit Provider Radiology Diagnostic Radiology | DX: Z12.31 Encounter for screening mammogram for malignant neoplasm of breast (principal) | CPT/HCPCS: 77063; 77067 ==

== ENCOUNTER 2023-12-06 09:34 | Outpatient (AMB) | payer OTHER, SELFPAY ==
--- NOTE | 2023-12-06 09:36 | A.OFFVIS_ITS ---
Intake VS Expanded 12/06/23 09:45 BP 155/75 H Blood Pressure Location Rt brachial Blood Pressure Position Sitting Pulse 68 Pulse Source Pulse Oximeter Temp 97.8 F Temperature Source Temporal Artery Scan Pulse Oximetry 98 Oxygen Delivery Method Room Air Height 4 ft 10 in Weight 118 lb 9.6 oz BMI 24.8 Body Fat % 27.9 Body Fat Mass 33.0 Fat Free Mass 85.4 Visceral Fat Rating 6.0 Body Water % 51.0 Body Water Mass 60.4 Muscle Mass/Score 81.0 Basal Metabolic Rate/Score 1,154 Intake Visit Reasons: (OV) PO LRYGB 08/22/16 Allergies hydrocodone [HYDROCODONE] Allergy (Mild, Verified 12/06/23 09:42) SWELLING Medication List - Last Reconciled 12/06/23 by ROMAINE Allan calcium citrate-vitamin D3 250 mg-5 mcg (200 unit) 2 tabs PO BID hydrochlorothiazide 25 mg PO DAILY 90 days lisinopril 20 mg PO DAILY 90 days multivitamin 1 cap PO DAILY omeprazole 40 mg PO BID HPI HPI Comments History of Present Illness Details This?is a?57?yo female who is s/p RYGB 08/22/2016. Weight stable since last visit. Underwent EGD and colonoscopy with GI since last visit, results reviewed. Present meal plan includes: 8-10am Celebrate 4:1, 1 scoop in 8oz joe er 11am-1pm ZP bar 2-4pm ZP bar 6pm dinner- 4 forks protein, 4 forks marcela ad/veg (or 2 forks veg + 2 forks healthy carb) Exercising 7 days a week typically, plans to do road race this weekend Pt feels well overall. Is opening PPI capsules and mixing granules when she has time to do so. 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 [facility] Medical History Neck pain Chest pain New daily persistent headache Uncontrolled hypertension Pure hypercholesterolemia Mass of soft tissue of face Cyst Shingles Joint pain Hyperlipidemia Fibromyalgia Pre-diabetes Hypertension GERD (gastroesophageal reflux disease) Intestinal malabsorption following gastrectomy Intestinal malabsorption Cholelithiasis Surgical History History of esophagogastroduodenoscopy (EGD) (09/28/23) H/O colonoscopy (09/28/23) H/O: hysterectomy S/P laparoscopic cholecystectomy Status post panniculectomy S/P gastric bypass Family History Father Prostate cancer Mother Dementia Brother No problems noted. Sister No problems noted. Sister No problems noted. Son No problems noted. Son No problems noted. Son No problems noted. Social History Housing: House Alcohol intake: current Alcohol intake frequency: does not drink Alcohol type: wine and hard liquor Patient Tobacco Use Status: Never used Tobacco e-Cigarette/Vaping Use: Never Used Second Hand Smoke Exposure: No service: No Current occupational status: employed Current occupational exposures/hazards: No Cognitive needs: No Hearing needs: No Vision needs: No Physical Exam Vital Signs: Last Vital Signs Temp 97.8 F 12/06/23 09:45 Pulse 68 12/06/23 09:45 BP 155/75 H 12/06/23 09:45 Pulse Ox 98 12/06/23 09:45 Oxygen Delivery Method Room Air 12/06/23 09:45 BMI result Body Mass Index 24.8 Assessment & Plan Assessment & Plan (1) S/P gastric bypass: Comment: DOS 08/22/16, Dr. Magallon Code(s): Z98.84 - Bariatric surgery status (2) GERD (gastroesophageal reflux disease): Comment: Symptoms much improved with omeprazole open capsule Code(s): K21.9 - Gastro-esophageal reflux disease without esophagitis Plan Will adjust meal plan slightly to help pt get to goal weight of 110. Eliminate/minimize cheese, PB. 8-10am Celebrate shake 1 scoop 11am-1pm Celebrate shake 1 scoop 2-4pm ZP bar 6pm meal 4f protein, 4f salad/veg or 2f veg/2f healthy carb Pt may have been slightly low on protein previously- was only doing 1 shake, 1 bar, 1 meal plus snacks like cheese/PB. Reflux improved, pt avoiding triggers. RTC in July for annual. Patient is at healthy BMI and is considered stable at this time. I spent a total of 30 minutes reviewing/updating records, examining the patient and counseling the patient on weight management as detailed above. Coding Level of Care Code Est Pt Level 4 (19144) Diagnoses S/P gastric bypass Z98.84 GERD (gastroesophageal reflux disease) K21.9
[2023-12-06 09:45] VITALS: BP 155/75; PULSE 68; TEMP 36.6; O2SAT 98; BMI 24.8
== END 2023-12-06 11:23 | disposition home or self-care (01) ==
PROVIDERS: PCP Internal Medicine; Visit Provider Physician Assistant Surgical
DX: K21.9 Gastro-esophageal reflux disease without esophagitis (principal); Z98.84 Bariatric surgery status
CPT/HCPCS: 99214

== ENCOUNTER → 2023-12-06 09:34 | Outpatient (BNVA) | payer OTHER, SELFPAY | PROVIDERS: PCP Internal Medicine; Visit Provider Physician Assistant Surgical ==

== ENCOUNTER 2024-03-21 07:37 | Outpatient (AMB) | payer OTHER, SELFPAY ==
[2024-03-21 07:46] VITALS: BP 166/102; BMI 24.9
--- NOTE | 2024-03-21 07:46 | A.OFFPC_ITS ---
Vital Signs 03/21/24 07:46 Height 4 ft 10 in Weight 119 lb BMI 24.9 BP 166/102 H Blood Pressure Location Lt brachial Position Sitting Intake Visit Reasons: 6m follow up Intake Note: Patient here for a 6 month follow up [employer] Supervisor Required: No Accompanied by: Self / Same As Patient Allergies hydrocodone [HYDROCODONE] Allergy (Mild, Verified 03/21/24 07:58) SWELLING Medication List - Last Reconciled 03/21/24 by Chantelle Mayen MD calcium citrate-vitamin D3 250 mg-5 mcg (200 unit) 2 tabs PO BID hydrochlorothiazide 25 mg PO DAILY 90 days lisinopril 20 mg PO DAILY 90 days multivitamin 1 cap PO DAILY omeprazole 40 mg PO BID Tobacco use date assessed: 03/21/24 Dental Screening Dental Screen Date: 03/21/24 Did you have a dental visit in the last 12 months?: Yes Did you have a dental problem in the last 6 months where you did not have access to dental care?: No Was dental information given to patient?: Patient has dentist HPI HPI Comments History of Present Illness Details This is a 58-year-old female with hypertension, mild major depression and anxiety that complains of upper back pain and her brand getting indented due to macromastia and will benefit from surgery. Blood pressure still elevated and I will increase lisinopril from 20 mg to 30 mg. Blood pressure will be recheck in 3 weeks by nurse navigator. Denies any chest pain or shortness on breath. Depression with anxiety has been present due to work with some workers being disrespectful to her and nothing has happened. She feels better when she has not working. Declines medication but would like some counseling. I sent a message to Behavioral Health worker Leo. FORMERLY [facility], [facility] Medical History (Updated 03/21/24 @ 09:03 by Chantelle Mayen MD) Neck pain Chest pain New daily persistent headache Uncontrolled hypertension Pure hypercholesterolemia Mass of soft tissue of face Cyst Shingles Joint pain Hyperlipidemia Fibromyalgia Pre-diabetes Hypertension GERD (gastroesophageal reflux disease) Intestinal malabsorption following gastrectomy Intestinal malabsorption Cholelithiasis Surgical History History of esophagogastroduodenoscopy (EGD) (09/28/23) H/O colonoscopy (09/28/23) H/O: hysterectomy S/P laparoscopic cholecystectomy Status post panniculectomy S/P gastric bypass Family History Father Prostate cancer Mother Dementia Brother No problems noted. Sister No problems noted. Sister No problems noted. Son No problems noted. Son No problems noted. Son No problems noted. Social History (Updated 03/21/24 @ 08:07 by Chantelle Mayen MD) Housing: House Alcohol intake: current Alcohol intake frequency: does not drink Alcohol type: wine and hard liquor Patient Tobacco Use Status: Never used Tobacco e-Cigarette/Vaping Use: Never Used Second Hand Smoke Exposure: No service: No Current occupational status: employed Current occupational exposures/hazards: No Cognitive needs: No Hearing needs: No Vision needs: No Questionnaire PHQ-9 Over the last 2 weeks, how often have you been bothered by any of the following problems? 1. Little interest or pleasure in doing things: not at all 2. Feeling down, depressed, or hopeless: several days 3. Trouble falling or staying asleep, or sleeping too much: nearly every day 4. Feeling tired or having little energy: not at all 5. Poor appetite or overeating: not at all 6. Feeling bad about yourself - or that you are a failure or have let yourself or your family down: not at all 7. Trouble concentrating on things, such as reading the newspaper or watching television: not at all 8. Moving or speaking so slowly that other people could have noticed. Or the opposite - being so fidgety or restless that you have been moving around a lot more than usual: not at all 9. Thoughts that you would be better off or of hurting yourself in some way: not at all Total score: 4 Depression Screening Interpretation: Positive Depression Screening Follow-up: Existing condition and Follow-up Visit Requested Depression Screening Done: Yes [id number] - PHQ-9 Billing: Yes Source: Developed by Drs. Olvin Kahn, Mandi Andres, Renzo Padilla and colleagues, with an educational agnieszka from [employer]. Thrive Questionnaire Date Thrive assessed: 03/21/24 I am a: Patient What is your living situation today?: I have a steady place to live Within the past 12 months, did the food you bought not last and you didn't have the money to get more?: Never true Within the past 12 months, did you worry whether your food would run out before you got money to buy more?: Never true Do you have trouble paying for medicines?: No Do you have trouble getting transportation to medical appointments?: No Do you have trouble paying your heating and electricity bill?: No Do you have trouble taking care of your child, family member or friend?: No Do you have trouble with day-to-day activities such as bathing, preparing meals, shopping, managing finances, etc.?: No Are you currently unemployed and looking for a job?: No Are you interested in more education?: No Please select the resources that you would like help with: None Currently or been in a relationship where the following occur: No concerns reported THRIVE Score: 0 AUDIT C Alcohol Use Questionnaire (AUDIT-C) 1. How often do you have a drink containing alcohol?: Monthly or less 2. How many drinks containing alcohol do you have on a typical day when you are drinking?: 1 or 2 3. How often do you have six or more drinks on one occasion?: Never Total Score: 1 Score Reviewed/Action Taken: No ЕЛЕНА-7 AMB Questionnaire ЕЛЕНА-7 Date ЕЛЕНА - 7 assessed: 03/21/24 Feeling nervous, anxious, or on edge: 3 = Nearly every day Not being able to stop or control worryin = Several days Worrying too much about different things: 3 = Nearly every day Trouble relaxin = Several days Being so restless that it is hard to sit still: 0 = Not at all Becoming easily annoyed or irritable: 1 = Several days Feeling afraid as if something awful might happen: 0 = Not at all Total ЕЛЕНА-7 score (0-4 normal; 5-9 mild; 10-14 moderate; 15-21 severe): 9 Source: Developed by Drs. Olvin Kahn, Mandi Andres, Renzo Padilla and colleagues, with an educational agnieszka from [employer]. ЕЛЕНА-7 Assessment Billing ЕЛЕНА-7 Assessment Tool: ЕЛЕНА-7 Assessment 60229 Review of Systems Const All systems reviewed & are unremarkable except as noted in HPI and below Card Denies chest pain at rest, Denies chest pain with activity, Denies edema, Denies irregular heart rhythm, Denies claudication, Denies dyspnea, Denies dyspnea on exertion, Denies orthopnea, Denies paroxysmal nocturnal dyspnea and Denies slow heart rate Resp Denies cough, Denies dyspnea and Denies dyspnea on exertion GI Denies abdominal pain, Denies change in bowel habits, Denies excessive flatus, Denies nausea and Denies vomiting Denies urinary incontinence, Denies urinary hesitancy and Denies urinary urgency Physical exam (Primary Care) Vital Signs: Last Vital Signs BP 166/102 H 03/21/24 07:46 BMI result Body Mass Index 24.9 Tobacco/Smoking Status: Tobacco use Status Tobacco use date assessed 03/21/24 03/21/24 07:54 Patient Tobacco Use Status Never used Tobacco 03/21/24 08:07 Tobacco use type 09/19/23 08:08 e-Cigarette/Vaping Use Never Used 03/21/24 08:07 PHQ-9: PHQ-9 Score PHQ-9: Total score 4 03/21/24 08:01 Depression Screening Interpretation: Positive Depression Screening Follow-up: Existing condition and Follow-up Visit Requested Thrive Assessment: Date of Thrive Assessment Date Thrive assessed 03/21/24 03/21/24 07:54 Currently or been in a relationship where the following occur: No concerns reported Resp Effort & Inspection: normal respiratory effort Auscultation: clear to auscultation bilaterally Cardio Jugular venous distension: no JVD Rate: regular rate Rhythm: regular rhythm Heart sounds: S1 normal heart sound present and S2 normal heart sound present Extrem General: Yes full ROM Assessment and Plan Assessment & Plan (1) Essential hypertension: Code(s): I10 - Essential (primary) hypertension Plan: Continue hydrochlorothiazide. Increase lisinopril to 30 mg. Recheck blood pressure with nurse navigator in 3 weeks. Blood pressure goal is equal or less than 130/80. (2) Mild major depression: Code(s): F32.0 - Major depressive disorder, single episode, mild Plan: Declines medication. Would like to try counseling. Avoid trigger factors such as working in hostile environment. (3) ЕЛЕНА (generalized anxiety disorder): Code(s): F41.1 - Generalized anxiety disorder Plan: Declines medication. Would like to try counseling. Avoid trigger factors such as working at a hostile environment. (4) Macromastia: Code(s): N62 - Hypertrophy of breast Plan: Referred to Plastic surgery. Orders: Orders Lipid Panel 6 Months E78.5 - Hyperlipidemia, unspecified, I10 - Essential (primary) hypertension Comprehensive [place]. Panel Fast 6 Months I10 - Essential (primary) hypertension Vitamin D 25-OH Total 6 Months E55.9 - Vitamin D deficiency, unspecified Referrals Plastic Surgery Referral N62 - Hypertrophy of breast Medications: New lisinopril 30 mg PO DAILY 30 days 30 tabs 0RF Refilled hydrochlorothiazide 25 mg PO DAILY 90 days 90 tabs 1RF omeprazole open capsule and mix granules with apple sauce 40 mg PO BID 90 caps 2RF Discontinued lisinopril Discontinued Reason: Patient Completed Course 20 mg PO DAILY 90 days 90 tabs 1RF I10 - Essential (primary) hypertension Coding Level of Care Code Est Pt Level 4 (30760) Complex EM visit Add On G2211 Diagnoses Essential hypertension I10 Mild major depression F32.0 ЕЛЕНА (generalized anxiety disorder) F41.1 Macromastia N62 Additional Codes ЕЛЕНА-7 Assessment Billing - ЕЛЕНА-7 Assessment Tool: ЕЛЕНА-7 Assessment 75608 ([id number]) Time Spent (min) 21
== END 2024-03-21 08:16 | disposition home or self-care (01) ==
LOC: HO.HMGH 07:37
PROVIDERS: PCP Internal Medicine; Visit Provider Internal Medicine
DX: I10 Essential (primary) hypertension (principal); F32.0 Major depressive disorder, single episode, mild; F41.1 Generalized anxiety disorder; N62 Hypertrophy of breast
CPT/HCPCS: 99214

== ENCOUNTER 2024-07-04 15:23 | Outpatient (AMB) | payer OTHER, SELFPAY ==
--- NOTE | 2024-07-04 15:28 | A.OFFPC_ITS ---
Vital Signs 07/04/24 15:29 Height 4 ft 10 in Weight 120 lb BMI 25.1 BP 122/80 Blood Pressure Location Lt brachial Position Sitting Intake Visit Reasons: elevated bp Intake Note: Patient here for a elevated bp Network Support Manager Required: No Accompanied by: Self / Same As Patient Allergies hydrocodone [HYDROCODONE] Allergy (Mild, Verified 07/04/24 15:49) SWELLING Medication List - Last Reconciled 07/04/24 by Chantelle Mayen MD amlodipine 5 mg PO DAILY 30 days calcium citrate-vitamin D3 250 mg-5 mcg (200 unit) 2 tabs PO BID hydrochlorothiazide 25 mg PO DAILY 90 days lisinopril 30 mg PO DAILY 30 days multivitamin 1 cap PO DAILY omeprazole 40 mg PO BID Tobacco use date assessed: 03/21/24 Dental Screening Dental Screen Date: 03/21/24 HPI HPI Comments History of Present Illness Details This is a 58-year-old female with hypertension, GERD and osteopenia that complains of diffuse joint pain and muscle aches that has been present for few months. She still exercise daily. Blood pressure stable. GERD stable with PPIs. Last DEXA scan was 2022 showing osteopenia and she is on calcium with vitamin-D. Has elevated cholesterol that will be monitor. FORMERLY [facility] Medical History (Updated 07/04/24 @ 17:36 by Chantelle Mayen MD) Neck pain Chest pain New daily persistent headache Uncontrolled hypertension Pure hypercholesterolemia Mass of soft tissue of face Cyst Shingles Joint pain Hyperlipidemia Fibromyalgia Pre-diabetes Hypertension GERD (gastroesophageal reflux disease) Intestinal malabsorption following gastrectomy Intestinal malabsorption Cholelithiasis Surgical History History of esophagogastroduodenoscopy (EGD) (09/28/23) H/O colonoscopy (09/28/23) H/O: hysterectomy S/P laparoscopic cholecystectomy Status post panniculectomy S/P gastric bypass Family History Father Prostate cancer Mother Dementia Brother No problems noted. Sister No problems noted. Sister No problems noted. Son No problems noted. Son No problems noted. Son No problems noted. Social History Housing: House Alcohol intake: current Alcohol intake frequency: does not drink Alcohol type: wine and hard liquor Patient Tobacco Use Status: Never used Tobacco e-Cigarette/Vaping Use: Never Used Second Hand Smoke Exposure: No service: No Current occupational status: employed Current occupational exposures/hazards: No Cognitive needs: No Hearing needs: No Vision needs: No Questionnaire Thrive Questionnaire Date Thrive assessed: 03/21/24 Are you currently unemployed and looking for a job?: No ЕЛЕНА-7 AMB Questionnaire ЕЛЕНА-7 Date ЕЛЕНА - 7 assessed: 03/21/24 Source: Developed by Drs. Olvin Kahn, Mandi Andres, Renzo Padilla and colleagues, with an educational agnieszka from [employer]. Review of Systems Const All systems reviewed & are unremarkable except as noted in HPI and below Eyes Reports no additional complaints, Denies change in vision and Denies other visual disturbances Card Denies chest pain at rest, Denies chest pain with activity, Denies edema, Denies irregular heart rhythm, Denies claudication, Denies dyspnea, Denies dyspnea on exertion, Denies orthopnea, Denies paroxysmal nocturnal dyspnea and Denies slow heart rate Resp Denies cough, Denies dyspnea and Denies dyspnea on exertion Physical exam (Primary Care) Vital Signs: Last Vital Signs BP 122/80 07/04/24 15:29 BMI result Body Mass Index 25.1 Tobacco/Smoking Status: Tobacco use Status Tobacco use date assessed 03/21/24 07/04/24 15:39 Patient Tobacco Use Status Never used Tobacco 07/04/24 15:39 Tobacco use type 09/19/23 08:08 e-Cigarette/Vaping Use Never Used 07/04/24 15:39 Thrive Assessment: Date of Thrive Assessment Date Thrive assessed 03/21/24 07/04/24 15:39 Resp Effort & Inspection: normal respiratory effort Auscultation: clear to auscultation bilaterally Cardio Jugular venous distension: no JVD Rate: regular rate Rhythm: regular rhythm Heart sounds: S1 normal heart sound present and S2 normal heart sound present Extrem General: Yes full ROM Office Procedures Flu Questionnaire Does the patient have a severe egg allergy?: No Does the patient have severe life threatening allergies?: No Does the patient have a fever or illness today?: No Has the patient ever had Guillain-[place] Syndrome?: No Has the patient ever had any past reaction to a flu shot?: No Immunizations Fluarix Triv [id number] (PF) 45 mcg (15 mcg x 3)/0.5 mL IM syringe Performing Provider: Chantelle Mayen MD [place] [facility] [facility] Administered by: MUNIRA Alvarez on 07/04/24 16:13 Dose Route Admin Location Dispensed Lot Number Expiration Date [facility] Narrow Gauge Operator 0.5 mL IM Left Deltoid 0.5 mL [id number] 03/24/25 [id number] [employer] VIS Given Date VIS Provided VIS Publication Date 07/04/24 Single Vaccine 21 Eligibility Eligibility Date Funding Source Not [facility] Eligible 07/04/24 Private Coding Level of Care Code Est Pt Level 4 (53936) Complex EM visit Add On G2211 Diagnoses Essential hypertension I10 Polyarthralgia M25.50 GERD (gastroesophageal reflux disease) K21.9 Osteopenia M85.80 Time Spent (min) 21 Assessment & Plan Assessment & Plan (1) Essential hypertension: Code(s): I10 - Essential (primary) hypertension Category: Medical Plan: Continue lisinopril, hydrochlorothiazide and amlodipine. Blood pressure goal is equal or less than 130/80. (2) Polyarthralgia: Code(s): M25.50 - Pain in unspecified joint Category: Medical Plan: Labs ordered. (3) GERD (gastroesophageal reflux disease): Comment: Symptoms much improved with omeprazole open capsule Code(s): K21.9 - Gastro-esophageal reflux disease without esophagitis Category: Medical Plan: Continue PPIs. (4) Osteopenia: Code(s): M85.80 - Other specified disorders of bone density and structure, unspecified site Category: Medical Plan: Continue calcium with vitamin-D. Repeat DEXA scan 2024. Orders: Orders Influenza [id number] Immunization Today Z23 - Encounter for immunization Comprehensive [place]. Panel Fast Today I10 - Essential (primary) hypertension Rheumatoid Factor Today M25.50 - Pain in unspecified joint Complete Blood Count Auto Diff Today M25.50 - Pain in unspecified joint Lyme IgG/IgM w/reflex to WB Today M25.50 - Pain in unspecified joint Lipid Panel Today E78.5 - Hyperlipidemia, unspecified Cyclic Citrullinated Peptide Today M25.50 - Pain in unspecified joint Erythrocyte Sedimentation Rate Today M25.50 - Pain in unspecified joint CHANTELLE Reflex Titer and Pattern Today M25.50 - Pain in unspecified joint
[2024-07-04 15:29] VITALS: BP 122/80; BMI 25.1
== END 2024-07-04 16:12 | disposition home or self-care (01) ==
PROVIDERS: PCP Internal Medicine; Visit Provider Internal Medicine
DX: I10 Essential (primary) hypertension (principal); M25.50 Pain in unspecified joint; K21.9 Gastro-esophageal reflux disease without esophagitis; M85.80 Other specified disorders of bone density and structure, unspecified site; Z23 Encounter for immunization

== ENCOUNTER → 2024-07-04 15:23 | Outpatient (BNVA) | payer OTHER, SELFPAY | PROVIDERS: PCP Internal Medicine; Visit Provider Internal Medicine | DX: I10 Essential (primary) hypertension (principal); M25.50 Pain in unspecified joint; K21.9 Gastro-esophageal reflux disease without esophagitis; M85.80 Other specified disorders of bone density and structure, unspecified site; Z79.899 Other long term (current) drug therapy; Z23 Encounter for immunization | CPT/HCPCS: 90471; 90656 ==

== ENCOUNTER 2024-07-10 07:32 | Outpatient (REF) | payer OTHER, SELFPAY ==
[2024-07-10 07:47] LABS: MANUAL DIFF FLAG NO
[2024-07-10 08:06] LABS: Basophils Percent Auto 0.4 % (0-2); Eosinophils Absolute Auto 0.2 X10*3/uL (0.0-0.4); Eosinophils Percent Auto 2.4 % (0-4); Hematocrit 40.2 % (37.0-47.0); Hemoglobin 13.1 g/dl (12.0-16.0); Imm Gran Abs Auto 0.02 X10*3/uL (0.00-0.03); Imm Gran Pct Auto 0.3 % (0.0-0.4); Lymphocytes Absolute Auto 1.2 X10*3/uL (1.2-4.9); Lymphocytes Percent Auto 18.6 % (20-40); Mean Corpuscular HGB Conc 32.6 g/dl (31.0-35.0); Mean Corpuscular Volume 88.9 fL (80.0-98.0); Monocytes Absolute Auto 0.7 X10*3/uL (0.1-1.2); Monocytes Percent Auto 10.6 % (2-11); Neutrophils Absolute Auto 4.5 x10*3/uL (2.0-8.3); Neutrophils Percent Auto 67.7 % (45-73); Platelet Count 257 X10*3/uL (160-400); Red Blood Count 4.52 X10*6/uL (4.20-5.50); Red Cell Distribution Width 12.8 % (11.0-16.0); White Blood Count 6.7 X10*3/uL (4.8-10.8)
[2024-07-10 08:30] LABS: Alanine Aminotransferase 17 U/L (0-31); Albumin Level 4.2 g/dL (3.5-5.0); Alkaline Phosphatase 98 U/L (39-117); Anion Gap 12 (12-20); Aspartate Amino Transferase 31 U/L (5-31); Bilirubin Total 0.9 mg/dL (0.0-1.0); Blood Urea Nitrogen 17 mg/dL (9-16); Calcium 9.4 mg/dL (8.4-10.2); Carbon Dioxide 27 mmol/L (22-29); Chloride 106 mmol/L (96-108); Cholesterol 207 mg/dL (<200); Estimated Glomerular Filt Rate > 60; Glucose Fasting 97 mg/dL (60-99); HDL Cholesterol 78 mg/dL (>40); LDL Cholesterol Calculated 107 mg/dL (<100); Potassium 4.1 mmol/L (3.3-5.1); Sodium 141 mmol/L (135-145); Total Protein 6.9 g/dL (6.5-8.0); Triglycerides 110 mg/dL (<150)
[2024-07-10 08:33] LABS: Rheumatoid Factor < 13.0 IU/mL (<15.0)
[2024-07-10 08:46] LABS: Erythrocyte Sedimentation Rate 7 MM/HR (0-20)
[2024-07-12 01:08] LABS: Cyclic Citrullinated Peptide <16 UNITS
[2024-07-12 21:23] LABS: Lyme Abs Screen <0.90 index
[2024-07-15 09:54] LABS: Anti Nuclear Antibody Pattern Nuclear, Speckled; Anti Nuclear Antibody Screen POSITIVE (NEGATIVE)
== END 2024-07-10 07:33 | disposition home or self-care (01) ==
LOC: HO.LAB 07:32
PROVIDERS: PCP Internal Medicine; Visit Provider Internal Medicine
DX: M25.50 Pain in unspecified joint (principal); I10 Essential (primary) hypertension; E78.5 Hyperlipidemia, unspecified
CPT/HCPCS: 36415; 80053; 80061; 85025; 85652; 86038; 86039; 86200; 86431; 86617; 86618

== ENCOUNTER 2024-08-27 12:30 | Outpatient (AMB) | payer OTHER, SELFPAY ==
--- NOTE | 2024-08-27 12:33 | A.OFFVIS_ITS ---
Vital Signs 08/27/24 12:34 Height 4 ft 10 in Weight 120 lb BMI 25.1 BP 132/78 Blood Pressure Location Lt brachial Position Sitting Pulse 73 Pulse Source Pulse Oximeter Pulse Oximetry (%) 97 Oxygen Delivery Method Room Air Intake Visit Reasons: Abnormal lab/CM Intake Note: Patient present today for abnormal lab office visit. 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 Patient states that since losing her weight she has been more active and doing well however over the past 6 months she has been noticing progressive polyarthralgias. More specific the affecting her knees and her lateral hips. Also notes bilateral wrists pain. The pain is worse at night and not associated with prolonged morning stiffness or swelling. With respect to the knee pain, it is worse walking up and down stairs and especially after sitting down for prolonged period of time. She has not noticed any swelling or redness to her knees. With respect to her hips more left than right. Mainly the outer part of her left hip so much so that she can not lay down on her left side at night. With a script to her wrist pain she states that her pain sometimes wakes her up in the middle of the night and it is associated with numbness and tingling requiring her to flush her hands to get back feeling in her hands. She denies rashes, photosensitivity, alopecia, oral/nasal ulcers, lymphadenopathy, chest pain/shortness of breath, foamy urine, lower extremity edema, muscle weakness Also denies history of seizure, CVA, psychosis, history of kidney problems, history of cytopenias, history of VTE including PE or DVTs Of note she does complain of easy bruising OB History: +1 (miscarriage 6-8 weeks) No history of preeclampsia Mother with osteoarthritis Has cousins on her father's side with lupus [facility] Medical History Neck pain Chest pain New daily persistent headache Uncontrolled hypertension Pure hypercholesterolemia Mass of soft tissue of face Cyst Shingles Joint pain Hyperlipidemia Fibromyalgia Pre-diabetes Hypertension GERD (gastroesophageal reflux disease) Intestinal malabsorption following gastrectomy Intestinal malabsorption Cholelithiasis Surgical History History of esophagogastroduodenoscopy (EGD) (09/28/23) H/O colonoscopy (09/28/23) H/O: hysterectomy S/P laparoscopic cholecystectomy Status post panniculectomy S/P gastric bypass Family History Father Prostate cancer Mother Dementia Brother No problems noted. Sister No problems noted. Sister No problems noted. Son No problems noted. Son No problems noted. Son No problems noted. Social History Housing: House Alcohol intake: current Alcohol intake frequency: holidays/special occasions only Alcohol type: wine and hard liquor Patient Tobacco Use Status: Never used Tobacco e-Cigarette/Vaping Use: Never Used Second Hand Smoke Exposure: No service: No Current occupational status: employed Current occupational exposures/hazards: No Cognitive needs: No Hearing needs: No Vision needs: No Review of Systems Const Details: Review of Systems Constitutional: Denies fever, chills, weight loss ENT: Denies vision changes, eye pain or eye redness, dental caries, dry mouth GI: Denies nausea, vomiting, diarrhea, abdominal pain, change in BM Pulm: Denies SOB, SEGAL, hemoptysis, wheezing Cards: Denies chest pain, palpitations Skin: Denies Raynaud's, rash, nail changes, photosensitivity, NIPPLE THREADER: Denies headaches, weakness, paresthesias, recurrent falls MSK: as per HPI All other systems reviewed and are unremarkable except noted above Physical Exam Vital Signs: Last Vital Signs Pulse 73 08/27/24 12:34 BP 132/78 08/27/24 12:34 Pulse Ox 97 08/27/24 12:34 Oxygen Delivery Method Room Air 08/27/24 12:34 BMI result Body Mass Index 25.1 Physical Examination CONSTITUITIONAL Patient alert and cooperative. Well appearing and in no apparent painful distress HEENT Conjunctiva and sclera clear. ?Pupils equal round and reactive to light. ?No lymphadenopathy. ?No oral or nasal ulcers noted. No evidence of discoid rash to the theodore of ears Normal Vineet's test bilaterally with more than 15 mm of tears produced in 5 minutes CHEST/RESPIRATORY SYSTEM Normal respiratory effort and able to speak in complete sentences. ?Clear to auscultation bilaterally. ?No crackles, rales, rhonchi, wheezes heard. CARDIAC SYSTEM Regular rate and rhythm. ?S1 and S2 heard no murmurs. 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 ?No deformities noted. ?No synovitis noted to the MCPs, PIPs or DIPs. ?No tenderness to palpation of these joints. Wrists: ?Full range of motion at the wrists without pain. ?No tenderness to palpation or synovitis noted to the wrists. Elbows: Full range of motion without pain. No tenderness, weakness, swelling, increased warmth or erythema. Shoulders: Full range of motion without pain. No tenderness, weakness, swelling, increased warmth or erythema. Hips: Full range of motion without pain. Hip bursa: Tenderness to palpation of the left hip bursa. Knees: ?Full range of motion. ?No tenderness, swelling, increased warmth or erythema.?No effusion or crepitations Ankles: Full range of motion. ?No tenderness, swelling, increased warmth or e rythema.? Feet: ?Negative squeeze test. ?No tenderness to palpation or swelling of the MTPs. SKIN Skin intact without rashes. Results Reviewed Results Reviewed: Laboratory Tests 08/23/23 07/10/24 08:15 07:45 WBC 6.7 RBC 4.52 Hgb 13.1 Hct 40.2 Plt Count 257 ESR 7 Sodium 141 Potassium 4.1 Chloride 106 Carbon Dioxide 27 BUN 17 H Creatinine 0.82 C-Reactive Protein 0.12 TSH 0.63 Rheumatoid Factor < 13.0 Cycl Citrul Peptide IgG <16 GEE Screen POSITIVE A GEE Titer 1:80 H GEE Pattern Nuclear, Speckled A DEXA 09/2022 FINDINGS: AP SPINE L1-L3 (excluding L4): The data of L1-L4 has been changed to exclude L4 because artifact from navel ring may cause overestimation of the lumbar spine density. Current: BMD 0.957 g/cm2, Z-score -0.4, T-score -1.8, osteopenia, 7.4% decrease from baseline (<5% change is not significant). Baseline: BMD 0.077 g/cm2. LEFT FEMUR, NECK: Current: BMD 0.702 g/cm2, Z-score -1.1, T-score -2.4, osteopenia. Baseline: BMD 0.724 g/cm2. LEFT FEMUR, TOTAL: Current: BMD 0.794 g/cm2, Z-score -0.7, T-score -1.7, osteopenia, 3.4% decrease from baseline (<5% change is not significant). Baseline: BMD 0.822 g/cm2. Assessment & Plan Assessment & Plan (1) Polyarthralgia: Code(s): M25.50 - Pain in unspecified joint Category: Medical Plan: #Polyarthralgias Patient with polyarthralgias mainly involving her bilateral knees, bilateral hip s (left more than right) and bilateral wrists. At this time I have a low suspicion for an autoimmune disease. She does not have the Protopic signs or symptoms of connective tissue disease. Her Vineet's test was negative and she had normal nail fold capillaries. Her GEE was mildly elevated at 1: 80 without any evidence of elevated ESR or CRP. Patient likely some element of early osteoarthritis. Risk factors include history of obesity and family history. We will check knee x-rays as well as hip x-rays. No further serological workup needed at this time RT p.r.n. (2) Positive GEE (antinuclear antibody): Code(s): R76.8 - Other specified abnormal immunological findings in serum Category: Medical Plan: #Positive GEE The presence of antinuclear antibodies (GEE) is mainly associated with connective tissue diseases (CTD). ?However, their presence is found in healthy people especially in women and patients >65. ?In healthy individuals, the frequency of GEE has been shown to be 31.7% of individuals at 1:40 serum dilution, 13.3% at 1:80, 5.0% at 1:160, and 3.3% at 1:320 (2). Some drugs and xenobiotics are also important for the development of GEE (hydralazine, hydrochlorothiazide, minocycline, terbinafine, ciprofloxacin, furosemide, omeprazole). Moreover, the deficiency of vitamin D in the body of patients correlates with occurrence of these antibodies (1). At this time there is low suspicion for a connective tissue disease. ? 1. Yeison?mallorie Garcia, Janell Gavin, Amarilis López. Antinuclear antibodies in healthy people and non-rheumatic diseases - diagnostic and clinical implications. Reumatologia. 2018;56(4):243-248. doi: 10.5114/reum.2018.89870. Epub 2017May 25. PMID: 88296674; PMCID: [id number]. 2. Bhatia EM, Adalberto TE, Philip JS, Wandy B, Jermaine R, Zander MJ, Dio T, Jose JA, Rafa JR, Katarzyna RG, Osvaldo RN, Maty JS, Edwige NF, Jitendra RJ, Kimberly Y, Felix A, Ken MR, Kelsy SINGH. Range of antinuclear antibodies in healthy individuals. Arthritis Rheum. 1996;40(9):1601-11. doi: 10.1 002/art.[id number]. PMID: 2585299. (3) Trochanteric bursitis of left hip: Code(s): M70.62 - Trochanteric bursitis, left hip Plan: #Left hip trochanteric bursitis Offered steroid injection however patient declined today. Given stretches to help with her bursitis (4) Carpal tunnel syndrome on both sides: Code(s): G56.03 - Carpal tunnel syndrome, bilateral upper limbs Plan: #Carpal tunnel syndrome Recommended splinting Plan I spent 60 minutes reviewing the record and labs, seeing the patient, discussing the treatment plan and documenting in the medical record ? Orders: Orders XR knee standing BI Today M25.50 - Pain in unspecified joint XR hip RT min 2V Today M25.50 - Pain in unspecified joint XR hip LT min 2V Today M25.50 - Pain in unspecified joint XR knee LT 3V Today M25.50 - Pain in unspecified joint XR knee RT 3V Today M25.50 - Pain in unspecified joint Coding Level of Care Code New Pt Level 5 (93684) Complex EM visit Add On G2211 Diagnoses Polyarthralgia M25.50 Positive GEE (antinuclear antibody) R76.8 Trochanteric bursitis of left hip M70.62 Carpal tunnel syndrome on both sides G56.03
[2024-08-27 12:34] VITALS: BP 132/78; PULSE 73; O2SAT 97; BMI 25.1
== END 2024-08-27 13:27 | disposition home or self-care (01) ==
PROVIDERS: PCP Internal Medicine; Visit Provider Student in an Organized Health Care Education/Training Program
DX: M25.50 Pain in unspecified joint (principal); R76.8 Other specified abnormal immunological findings in serum; M70.62 Trochanteric bursitis, left hip; G56.03 Carpal tunnel syndrome, bilateral upper limbs
CPT/HCPCS: 99205

== ENCOUNTER 2024-09-09 10:27 | Outpatient (AMB) | payer OTHER, SELFPAY ==
--- NOTE | 2024-09-09 10:29 | A.OFFVIS_ITS ---
VS Expanded 09/09/24 10:52 BP 162/81 H Blood Pressure Location Rt brachial Blood Pressure Position Sitting Pulse 75 Pulse Source Pulse Oximeter Temp 98.8 F Temperature Source Temporal Artery Scan Pulse Oximetry 98 Oxygen Delivery Method Room Air Height 4 ft 10 in Weight 122 lb 3.2 oz BMI 25.5 Body Fat % 28.7 Body Fat Mass 35.0 Fat Free Mass 87.0 Visceral Fat Rating 7.0 Body Water % 50.4 Body Water Mass 61.6 Muscle Mass/Score 82.6 Basal Metabolic Rate/Score 1,177 Intake Visit Reasons: OV PO LRYGB 08/22/16 Allergies hydrocodone [HYDROCODONE] Allergy (Mild, Verified 09/09/24 10:38) SWELLING Medication List - Last Reconciled 09/09/24 by ROMAINE Allan amlodipine 5 mg PO DAILY 30 days calcium citrate-vitamin D3 250 mg-5 mcg (200 unit) 2 tabs PO BID hydrochlorothiazide 25 mg PO DAILY 90 days lisinopril 30 mg PO DAILY 90 days multivitamin 1 cap PO DAILY omeprazole 40 mg PO BID HPI Comments Details: This?is a?58?yo female who is s/p RYGB 08/22/2016. Presents for 8 year post op visit. Weight gain of 3.6lbs since last OV 9mo ago.? No complaints of nausea, emesis, abdominal pain, or constipation. Taking PPI for reflux, controlled with this. Pt reports increasing pain, found to have hip bursitis, other joint pain. She declined a cortisone shot, takes Tylenol for pain which only helps a little. Just got approved for breast reduction with Dr. Genao, happy about this. She still gets pain/discomfort when eating rice, pasta. Present meal plan includes: 8-10am Celebrate shake 1 scoop 11am-1pm Celebrate shake 1 scoop 2-4pm ZP bar 6pm meal 4f protein, 4f salad/veg or 2f veg/2f healthy carb Exercise routine includes: 7 days a week typically has been limited due to pain- still tries to walk or use bike, signed up again for [place], plans to start weight training [facility] Medical History Neck pain Chest pain New daily persistent headache Uncontrolled hypertension Pure hypercholesterolemia Mass of soft tissue of face Cyst Shingles Joint pain Hyperlipidemia Fibromyalgia Pre-diabetes Hypertension GERD (gastroesophageal reflux disease) Intestinal malabsorption following gastrectomy Intestinal malabsorption Cholelithiasis Surgical History History of esophagogastroduodenoscopy (EGD) (09/28/23) H/O colonoscopy (09/28/23) H/O: hysterectomy S/P laparoscopic cholecystectomy Status post panniculectomy S/P gastric bypass Family History Father Prostate cancer Mother Dementia Brother No problems noted. Sister No problems noted. Sister No problems noted. Son No problems noted. Son No problems noted. Son No problems noted. Social History Housing: House Alcohol intake: current Alcohol intake frequency: holidays/special occasions only Alcohol type: wine and hard liquor Patient Tobacco Use Status: Never used Tobacco e-Cigarette/Vaping Use: Never Used Second Hand Smoke Exposure: No service: No Current occupational status: employed Current occupational exposures/hazards: No Cognitive needs: No Hearing needs: No Vision needs: No Assessment & Plan Assessment & Plan (1) Overweight: Code(s): E66.3 - Overweight Category: Medical (2) S/P gastric bypass: Comment: RAIN 08/22/16, Dr. Magallon Code(s): Z98.84 - Bariatric surgery status Category: Surgical Plan Pt will continue her same meal plan, planning to increase exercise at the [facility]. Had recent labs done, will order vitamin levels. RTC 1 year. I spent a total of 30 minutes reviewing/updating records, examining the patient and counseling the patient on weight management as detailed above. Orders: Orders Vitamin A Today Z98.84 - Bariatric surgery status Zinc Today Z98.84 - Bariatric surgery status Vitamin B12 and Folate Today Z98.84 - Bariatric surgery status Vitamin D 25-OH Total Today Z98.84 - Bariatric surgery status Vitamin B1 Today Z98.84 - Bariatric surgery status TSH reflex Free T4 Today Z98.84 - Bariatric surgery status
[2024-09-09 10:52] VITALS: BP 162/81; PULSE 75; TEMP 37.1; O2SAT 98; BMI 25.5
== END 2024-09-09 11:12 | disposition home or self-care (01) ==
PROVIDERS: PCP Internal Medicine; Visit Provider Physician Assistant Surgical
DX: E66.3 Overweight (principal); Z68.25 Body mass index [BMI] 25.0-25.9, adult; Z98.84 Bariatric surgery status
CPT/HCPCS: 99214

== ENCOUNTER 2024-09-13 09:29 | Outpatient (REF) | payer OTHER, SELFPAY ==
[2024-09-13 10:56] LABS: Alanine Aminotransferase 17 U/L (0-31); Albumin Level 4.2 g/dL (3.5-5.0); Alkaline Phosphatase 87 U/L (39-117); Anion Gap 11 (12-20); Aspartate Amino Transferase 28 U/L (5-31); Bilirubin Total 1.1 mg/dL (0.0-1.0); Blood Urea Nitrogen 19 mg/dL (9-16); Calcium 9.3 mg/dL (8.4-10.2); Carbon Dioxide 27 mmol/L (22-29); Chloride 106 mmol/L (96-108); Cholesterol 210 mg/dL (<200); Estimated Glomerular Filt Rate > 60; Glucose Fasting 98 mg/dL (60-99); HDL Cholesterol 68 mg/dL (>40); LDL Cholesterol Calculated 119 mg/dL (<100); Potassium 4.3 mmol/L (3.3-5.1); Sodium 140 mmol/L (135-145); Total Protein 7.2 g/dL (6.5-8.0); Triglycerides 116 mg/dL (<150)
[2024-09-13 11:13] LABS: TSH reflex Free T4 0.56 uIU/mL (0.32-4.0); Vitamin D 25-OH Total 22.1 ng/mL (>30)
[2024-09-13 11:23] LABS: Vitamin B12 387 pg/mL (200-900)
[2024-09-17 01:28] LABS: Zinc 78 mcg/dL (60-130)
[2024-09-18 04:19] LABS: Vitamin A 55 mcg/dL (38-98)
[2024-09-20 16:49] LABS: Vitamin B1 9 nmol/L (8-30)
== END 2024-09-13 09:30 | disposition home or self-care (01) ==
LOC: HO.XRAY 09:29
PROVIDERS: Absent Provider Student in an Organized Health Care Education/Training Program; PCP Internal Medicine; Referring Provider Internal Medicine; Visit Provider Physician Assistant Surgical
DX: M25.50 Pain in unspecified joint (principal); E55.9 Vitamin D deficiency, unspecified; I10 Essential (primary) hypertension; E78.5 Hyperlipidemia, unspecified; Z98.84 Bariatric surgery status
CPT/HCPCS: 36415; 73502; 73562; 80053; 80061; 82306; 82607; 82746; 84425; 84443; 84590; 84630

== ENCOUNTER → 2024-09-13 09:45 | Outpatient (BNV) | payer OTHER, SELFPAY | PROVIDERS: Absent Provider Student in an Organized Health Care Education/Training Program; PCP Internal Medicine; Referring Provider Internal Medicine; Visit Provider Radiology Diagnostic Radiology | DX: M25.552 Pain in left hip (principal); M25.551 Pain in right hip; M25.561 Pain in right knee; M25.562 Pain in left knee | CPT/HCPCS: 73502; 73562 ==

== ENCOUNTER 2024-09-23 07:26 | Outpatient (AMB) | payer OTHER, SELFPAY ==
[2024-09-23 07:36] VITALS: BP 128/82; BMI 25.5
--- NOTE | 2024-09-23 07:36 | MHC.PC.OV ---
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 Accompanied by: Self / Same As Patient Allergies hydrocodone [HYDROCODONE] Allergy (Mild, Verified 09/23/24 07:46) SWELLING Medication List - Last Reconciled 09/23/24 by Chantelle Mayen MD amlodipine 5 mg PO DAILY 30 days calcium citrate-vitamin D3 250 mg-5 mcg (200 unit) 2 tabs PO BID cholecalciferol (vitamin D3) 50 mcg PO DAILY hydrochlorothiazide 25 mg PO DAILY 90 days lisinopril 30 mg PO DAILY 90 days multivitamin 1 cap PO DAILY omeprazole 40 mg PO BID Tobacco use date assessed: 03/21/24 Dental Screening Dental Screen Date: 03/21/24 HPI HPI Comments History of Present Illness Details The patient is a 58-year-old female presenting for her physical exam. Recent laboratory evaluations revealed elevated cholesterol levels with an LDL of 119 mg/dL. The patient's [place] risk score indicated a 1.9% risk of heart attack or stroke over the next 10 years, thus not necessitating medication for cholesterol management at this time. Previously, she has been diagnosed with osteopenia, for which she is taking calcium and vitamin D supplements. Vitamin D levels previously measured at 23 ng/mL, attributed to seasonal lack of sun exposure. A colonoscopy performed in September revealed tubular adenomas, and she has been advised to repeat the procedure in five years. She has a maintained blood pressure under treatment with lisinopril and her kidney function remains excellent. Her blood sugar levels are within the normal range. Her previous surgical history includes a partial hysterectomy with removal of the ovaries and uterus, cholecystectomy, gastric bypass in 2015, and a panniculectomy in 2018. No need for Pap smear due to hysterectomy. - Mammogram: Performed in October this year and was normal. - Colonoscopy: Last performed in September this year; adenomas found; repeat in five years. - Endoscopy: Completed this year. - Vaccinations: Tdap administered in 2015, due in 2025; influenza vaccine received this year. - Osteopenia management: Calcium and vitamin D supplementation discussed. DEXA scan done 2022 and next one should be in 2024. - Cardiovascular Risk Assessment: 1.9% [place] risk, no new medication needed. [facility] Medical History (Updated 09/23/24 @ 08:38 by Chantelle Mayen MD) ЕЛЕНА (generalized anxiety disorder) Mild major depression Neck pain Chest pain New daily persistent headache Uncontrolled hypertension Pure hypercholesterolemia Mass of soft tissue of face Cyst Shingles Joint pain Hyperlipidemia Fibromyalgia Pre-diabetes Hypertension GERD (gastroesophageal reflux disease) Intestinal malabsorption following gastrectomy Intestinal malabsorption Cholelithiasis Surgical History History of esophagogastroduodenoscopy (EGD) (09/28/23) H/O colonoscopy (09/28/23) H/O: hysterectomy S/P laparoscopic cholecystectomy Status post panniculectomy S/P gastric bypass Family History Father Prostate cancer Mother Dementia Brother No problems noted. Sister No problems noted. Sister No problems noted. Son No problems noted. Son No problems noted. Son No problems noted. Social History Housing: House Alcohol intake: current Alcohol intake frequency: holidays/special occasions only Alcohol type: wine and hard liquor Patient Tobacco Use Status: Never used Tobacco e-Cigarette/Vaping Use: Never Used Second Hand Smoke Exposure: No service: No Current occupational status: employed Current occupational exposures/hazards: No Cognitive needs: No Hearing needs: No Vision needs: No Questionnaire PHQ-9 Over the last 2 weeks, how often have you been bothered by any of the following problems? 1. Little interest or pleasure in doing things: not at all 2. Feeling down, depressed, or hopeless: not at all 3. Trouble falling or staying asleep, or sleeping too much: not at all 4. Feeling tired or having little energy: not at all 5. Poor appetite or overeating: not at all 6. Feeling bad about yourself - or that you are a failure or have let yourself or your family down: not at all 7. Trouble concentrating on things, such as reading the newspaper or watching television: not at all 8. Moving or speaking so slowly that other people could have noticed. Or the opposite - being so fidgety or restless that you have been moving around a lot more than usual: not at all 9. Thoughts that you would be better off or of hurting yourself in some way: not at all Total score: 0 Depression Screening Interpretation: Negative Depression Screening Done: Yes 88994 - PHQ-9 Billing: Yes Source: Developed by Drs. Olvin Kahn, Mandi Andres, Renzo Padilla and colleagues, with an educational agnieszka from [employer]. Thrive Questionnaire Date Thrive assessed: 09/23/24 I am a: Patient What is your living situation today?: I have a steady place to live Within the past 12 months, did the food you bought not last and you didn't have the money to get more?: I choose not to answer this question Within the past 12 months, did you worry whether your food would run out before you got money to buy more?: I choose not to answer this question Do you have trouble paying for medicines?: I choose not to answer this question Do you have trouble getting transportation to medical appointments?: I choose not to answer this question Do you have trouble paying your heating and electricity bill?: I choose not to answer this question Do you have trouble taking care of your child, family member or friend?: I choose not to answer this question Do you have trouble with day-to-day activities such as bathing, preparing meals, shopping, managing finances, etc.?: I choose not to answer this question Are you interested in more education?: I choose not to answer this question Please select the resources that you would like help with: None Currently or been in a relationship where the following occur: I choose not to answer THRIVE Score: 0 AUDIT C Alcohol Use Questionnaire (AUDIT-C) 1. How often do you have a drink containing alcohol?: Never Total Score: 0 ЕЛЕНА-7 AMB Questionnaire ЕЛЕНА-7 Date ЕЛЕНА - 7 assessed: 09/23/24 Feeling nervous, anxious, or on edge: 0 = Not at all Not being able to stop or control worryin = Not at all Worrying too much about different things: 0 = Not at all Trouble relaxin = Not at all Being so restless that it is hard to sit still: 0 = Not at all Becoming easily annoyed or irritable: 0 = Not at all Feeling afraid as if something awful might happen: 0 = Not at all Total ЕЛЕНА-7 score (0-4 normal; 5-9 mild; 10-14 moderate; 15-21 severe): 0 Source: Developed by Drs. Olvin Kahn, Mandi Andres, Renzo Padilla and colleagues, with an educational agnieszka from [employer]. ЕЛЕНА-7 Assessment Billing ЕЛЕНА-7 Assessment Tool: ЕЛЕНА-7 Assessment 40807 Review of Systems Const All systems reviewed & are unremarkable except as noted in HPI and below Card Denies chest pain at rest, Denies chest pain with activity, Denies edema, Denies irregular heart rhythm, Denies claudication, Denies dyspnea, Denies dyspnea on exertion, Denies orthopnea, Denies paroxysmal nocturnal dyspnea and Denies slow heart rate Resp Denies cough, Denies dyspnea and Denies dyspnea on exertion GI Denies abdominal pain, Denies change in bowel habits, Denies excessive flatus, Denies nausea and Denies vomiting Denies urinary incontinence, Denies urinary hesitancy and Denies urinary urgency Musc Denies abnormal gait, Denies atrophy, Denies deformity and Denies limited range of motion Skin/Breast Denies bleeding lesions, Denies changing lesions and Denies rash Neuro Denies abnormal gait, Denies behavioral changes and Denies lack of coordination Psych Denies behavioral changes Physical exam (Primary Care) Vital Signs: Last Vital Signs BP 128/82 09/23/24 07:36 BMI result Body Mass Index 25.5 Tobacco/Smoking Status: Tobacco use Status Tobacco use date assessed 03/21/24 09/23/24 07:37 Patient Tobacco Use Status Never used Tobacco 09/23/24 07:37 Tobacco use type 07/18/24 15:25 e-Cigarette/Vaping Use Never Used 09/23/24 07:37 PHQ-9: PHQ-9 Score PHQ-9: Total score 0 09/23/24 07:48 Depression Screening Interpretation: Negative Thrive Assessment: Date of Thrive Assessment Date Thrive assessed 09/23/24 09/23/24 07:40 Currently or been in a relationship where the following occur: I choose not to answer [facility] Head: Yes normal to inspection, Yes normocephalic and Yes atraumatic Ears: external ears normal Eyes General: appearance normal, both eyes and all related structures Eyelids: Yes eyelids normal Conjunctivae: conjunctivae normal Neck Neck: Yes normal visual inspection and Yes supple Resp Effort & Inspection: normal respiratory effort Auscultation: clear to auscultation bilaterally Cardio Jugular venous distension: no JVD Rate: regular rate Rhythm: regular rhythm Heart sounds: S1 normal heart sound present and S2 normal heart sound present GI Inspection: Yes normal to inspection Palpation (GI): Soft to palpation and nontender Auscultation: normal bowel sounds Skin General skin exam: no rashes or lesions noted Neuro General: no focal motor deficits Extrem General: Yes full ROM Psych Appearance: grossly normal Coding Level of Care Code Est Pt Prev Care 40-64y(23212) Diagnoses Physical exam Z00.00 Additional Codes ЕЛЕНА-7 Assessment Billing - ЕЛЕНА-7 Assessment Tool: ЕЛЕНА-7 Assessment 68750 ([id number]) PHQ-9 - 52189 - PHQ-9 Billing: Yes ([id number]) Time Spent (min) 31 Assessment & Plan Assessment & Plan (1) Physical exam: Code(s): Z00.00 - Encounter for general adult medical examination without abnormal findings Category: Medical Plan - Continue current management of essential hypertension with lisinopril. - Encourage adherence to calcium and vitamin D supplementation for osteopenia. - Maintain regular surveillance for adenomas with a colonoscopy in five years. - Monitor cholesterol, repeat lipid profile in accordance with future risk assessment needs. - Schedule follow-up evaluation post-surgery to assess outcomes and review ongoing health maintenance. Patient was informed and verbally consented to the use of an ambient scribe for clinic note documentation during this visit. During today's visit, We discussed managing her known osteopenia with appropriate supplements and the necessity of screening blood work, ECG, and specific preoperative labs. I explained her 1.9% cardiovascular risk indicating no immediate need for cholesterol-lowering medications. I suggested maintaining dietary adjustments and exercise for bone and cardiovascular health. The importance of completing future colonoscopies was reiterated, and we reviewed the previous diagnoses and surgical history to ensure comprehensive care. Orders: Orders ECG 12 lead EKG Today Z01.818 - Encounter for other preprocedural examination Complete Blood Count Auto Diff Today Z01.818 - Encounter for other preprocedural examination Comprehensive [place]. Panel Fast Today Z01.818 - Encounter for other preprocedural examination Patient Instructions: - Follow up on scheduled preoperative tests and appointments. - Continue lisinopril, calcium, and vitamin D as prescribed. - Maintain a healthy diet and engage in regular physical activity. - Adhere to cholesterol monitoring schedule. - Contact the office if any new symptoms arise or if there are concerns regarding upcoming surgery. - Plan for a follow-up visit after surgical recovery to reassess health maintenance.
== END 2024-09-23 08:02 | disposition home or self-care (01) ==
PROVIDERS: PCP Internal Medicine; Visit Provider Internal Medicine
DX: Z00.00 Encounter for general adult medical examination without abnormal findings (principal)

== ENCOUNTER → 2024-09-23 07:26 | Outpatient (BNVA) | payer OTHER, SELFPAY | PROVIDERS: PCP Internal Medicine; Visit Provider Internal Medicine | DX: Z00.00 Encounter for general adult medical examination without abnormal findings (principal) | CPT/HCPCS: 96127 ==

== ENCOUNTER 2024-11-28 07:23 | Outpatient (REF) | payer OTHER, SELFPAY | END 2024-11-28 07:24 | disposition home or self-care (01) | LOC: HO.MAMMO 07:23 | PROVIDERS: PCP Internal Medicine; Visit Provider Internal Medicine | DX: Z12.31 Encounter for screening mammogram for malignant neoplasm of breast (principal) | CPT/HCPCS: 77063; 77067 ==

== ENCOUNTER → 2024-11-28 07:30 | Outpatient (BNV) | payer OTHER, SELFPAY | PROVIDERS: PCP Internal Medicine; Visit Provider Internal Medicine | DX: Z12.31 Encounter for screening mammogram for malignant neoplasm of breast (principal) | CPT/HCPCS: 77063; 77067 ==

== ENCOUNTER 2024-11-28 07:58 | Outpatient (REF) | payer OTHER, SELFPAY ==
--- NOTE | 2024-11-28 08:03 | ECG_ITS ---
Test Reason : PRE OP Blood Pressure : */* mmHG Vent. Rate : 62 BPM Atrial Rate : 62 BPM P-R Int : 160 ms QRS Dur : 82 ms QT Int : 456 ms P-R-T Axes : 16 -18 5 degrees QTcB Int : 462 ms Normal sinus rhythm Normal ECG When compared with ECG of 18-Oct-2021 15:44, No significant change was found Referred By: Chantelle Mayen Electronically Signed By: EVARISTO ORTEGA MD
[2024-11-28 08:23] LABS: MANUAL DIFF FLAG NO
[2024-11-28 08:44] LABS: Basophils Percent Auto 0.4 % (0-2); Eosinophils Absolute Auto 0.1 X10*3/uL (0.0-0.4); Eosinophils Percent Auto 1.8 % (0-4); Hematocrit 40.3 % (37.0-47.0); Hemoglobin 13.1 g/dl (12.0-16.0); Imm Gran Abs Auto 0.01 X10*3/uL (0.00-0.03); Imm Gran Pct Auto 0.2 % (0.0-0.4); Lymphocytes Absolute Auto 1.5 X10*3/uL (1.2-4.9); Mean Corpuscular HGB Conc 32.5 g/dl (31.0-35.0); Mean Corpuscular Hemoglobin 29.2 pg (27.0-33.0); Mean Corpuscular Volume 89.8 fL (80.0-98.0); Mean Platelet Volume 10.6 fL (9.4-12.3); Monocytes Absolute Auto 0.5 X10*3/uL (0.1-1.2); Monocytes Percent Auto 9.7 % (2-11); Neutrophils Absolute Auto 3.4 x10*3/uL (2.0-8.3); Neutrophils Percent Auto 60.9 % (45-73); Platelet Count 256 X10*3/uL (160-400); Red Blood Count 4.49 X10*6/uL (4.20-5.50); White Blood Count 5.6 X10*3/uL (4.8-10.8)
[2024-11-28 09:21] LABS: Alanine Aminotransferase 17 U/L (0-31); Alkaline Phosphatase 79 U/L (39-117); Anion Gap 12 (12-20); Aspartate Amino Transferase 28 U/L (5-31); Blood Urea Nitrogen 22 mg/dL (9-16); Calcium 8.9 mg/dL (8.4-10.2); Carbon Dioxide 26 mmol/L (22-29); Chloride 106 mmol/L (96-108); Estimated Glomerular Filt Rate > 60; Glucose Fasting 89 mg/dL (60-99); Glucose Random 88 mg/dL (60-115); Potassium 3.8 mmol/L (3.3-5.1); Sodium 140 mmol/L (135-145); Total Protein 7.2 g/dL (6.5-8.0)
== END 2024-11-28 07:59 | disposition home or self-care (01) ==
LOC: HO.LAB 07:58
PROVIDERS: PCP Internal Medicine; Visit Provider Internal Medicine
DX: Z01.818 Encounter for other preprocedural examination (principal); K21.9 Gastro-esophageal reflux disease without esophagitis
CPT/HCPCS: 36415; 80053; 85025; 93005

== ENCOUNTER → 2024-11-28 08:03 | Outpatient (BNV) | payer OTHER, SELFPAY | PROVIDERS: PCP Internal Medicine; Visit Provider Internal Medicine Cardiovascular Disease | DX: Z01.810 Encounter for preprocedural cardiovascular examination (principal) | CPT/HCPCS: 93010 ==

== ENCOUNTER 2025-01-28 08:51 | Outpatient (AMB) | payer OTHER, SELFPAY ==
--- NOTE | 2025-01-28 09:00 | MHC.PC.OV ---
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: No Accompanied by: Self / Same As Patient Allergies hydrocodone [HYDROCODONE] Allergy (Mild, Verified 01/28/25 09:12) SWELLING Medication List - Last Reconciled 01/28/25 by Chantelle Mayen MD amlodipine 5 mg PO DAILY 30 days calcium citrate-vitamin D3 250 mg-5 mcg (200 unit) 2 tabs PO BID cholecalciferol (vitamin D3) 50 mcg PO DAILY hydrochlorothiazide 25 mg PO DAILY 90 days lisinopril 30 mg PO DAILY 90 days multivitamin 1 cap PO DAILY omeprazole 40 mg PO BID scopolamine base 1 patch transdermal Q3D PRN 14 days Tobacco use date assessed: 01/28/25 Dental Screening Dental Screen Date: 01/28/25 Did you have a dental visit in the last 12 months?: Yes Did you have a dental problem in the last 6 months where you did not have access to dental care?: No Was dental information given to patient?: Patient has dentist HPI HPI Comments History of Present Illness Details The patient is a 59-year-old female presenting for a preoperative medical evaluation ahead of her scheduled breast reduction surgery. Her medical background includes essential hypertension, managed with antihypertensive drugs, and gastroesophageal reflux disease controlled with omeprazole. Previous surgeries include a hysterectomy, gastric bypass in 2016, and a panniculectomy in 2018, with no reported surgical complications or pertinent postoperative issues. Has 5-7 Mets of ADLs. Going for a medium risk surgery. EKG and labs showed no medical contraindication therefore patient is medically clear for breast reduction surgery. Macromastia has been causing thoracic spine pain. During the evaluation, she reported an allergy to hydrocodone, manifesting as swelling, but she experiences no adverse effects with her current medication regimen. The patient has undergone an electrocardiogram in November showing normal sinus rhythm, affirming her cardiovascular fitness for the approaching surgery. History also reveals no incidences of chest pain or shortness of breath, and she maintains the ability to engage in physical activities such as stair climbing without complication. Her family history is significant for dementia in her mother and active cancer in her father. Overall, she displays an informed and prepared stance for her upcoming procedure, with recent mandatory tests and labs reflecting satisfactory results. [facility] Medical History (Updated 01/28/25 @ 09:28 by Chantelle Mayen MD) ЕЛЕНА (generalized anxiety disorder) Mild major depression Neck pain Chest pain New daily persistent headache Uncontrolled hypertension Pure hypercholesterolemia Mass of soft tissue of face Cyst Shingles Joint pain Hyperlipidemia Fibromyalgia Pre-diabetes Hypertension GERD (gastroesophageal reflux disease) Intestinal malabsorption following gastrectomy Intestinal malabsorption Cholelithiasis Surgical History History of esophagogastroduodenoscopy (EGD) (09/28/23) H/O colonoscopy (09/28/23) H/O: hysterectomy S/P laparoscopic cholecystectomy Status post panniculectomy S/P gastric bypass Family History Father Prostate cancer Mother Dementia Brother No problems noted. Sister No problems noted. Sister No problems noted. Son No problems noted. Son No problems noted. Son No problems noted. Social History Housing: House Alcohol intake: current Alcohol intake frequency: holidays/special occasions only Alcohol type: wine and hard liquor Patient Tobacco Use Status: Never used Tobacco e-Cigarette/Vaping Use: Never Used Second Hand Smoke Exposure: No service: No Current occupational status: employed Current occupational exposures/hazards: No Cognitive needs: No Hearing needs: No Vision needs: No Questionnaire PHQ-9 Over the last 2 weeks, how often have you been bothered by any of the following problems? 1. Little interest or pleasure in doing things: not at all 2. Feeling down, depressed, or hopeless: not at all 3. Trouble falling or staying asleep, or sleeping too much: not at all 4. Feeling tired or having little energy: not at all 5. Poor appetite or overeating: not at all 6. Feeling bad about yourself - or that you are a failure or have let yourself or your family down: not at all 7. Trouble concentrating on things, such as reading the newspaper or watching television: not at all 8. Moving or speaking so slowly that other people could have noticed. Or the opposite - being so fidgety or restless that you have been moving around a lot more than usual: not at all 9. Thoughts that you would be better off or of hurting yourself in some way: not at all Total score: 0 Depression Screening Interpretation: Negative Depression Screening Done: Yes 19239 - PHQ-9 Billing: Yes Source: Developed by Drs. Olvin Kahn, Mandi Andres, Renzo Padilla and colleagues, with an educational agnieszka from [employer]. Thrive Questionnaire Date Thrive assessed: 01/28/25 I am a: Patient What is your living situation today?: I have a steady place to live Within the past 12 months, did the food you bought not last and you didn't have the money to get more?: I choose not to answer this question Within the past 12 months, did you worry whether your food would run out before you got money to buy more?: I choose not to answer this question Do you have trouble paying for medicines?: I choose not to answer this question Do you have trouble getting transportation to medical appointments?: I choose not to answer this question Do you have trouble paying your heating and electricity bill?: I choose not to answer this question Do you have trouble taking care of your child, family member or friend?: I choose not to answer this question Do you have trouble with day-to-day activities such as bathing, preparing meals, shopping, managing finances, etc.?: I choose not to answer this question Are you currently unemployed and looking for a job?: No Are you interested in more education?: I choose not to answer this question Please select the resources that you would like help with: None Currently or been in a relationship where the following occur: I choose not to answer THRIVE Score: 0 AUDIT C Alcohol Use Questionnaire (AUDIT-C) 1. How often do you have a drink containing alcohol?: Monthly or less 2. How many drinks containing alcohol do you have on a typical day when you are drinking?: 1 or 2 3. How often do you have six or more drinks on one occasion?: Never Total Score: 1 Score Reviewed/Action Taken: No ЕЛЕНА-7 AMB Questionnaire ЕЛЕНА-7 Date ЕЛЕНА - 7 assessed: 01/28/25 Feeling nervous, anxious, or on edge: 0 = Not at all Not being able to stop or control worryin = Not at all Worrying too much about different things: 0 = Not at all Trouble relaxin = Not at all Being so restless that it is hard to sit still: 0 = Not at all Becoming easily annoyed or irritable: 0 = Not at all Feeling afraid as if something awful might happen: 0 = Not at all Total ЕЛЕНА-7 score (0-4 normal; 5-9 mild; 10-14 moderate; 15-21 severe): 0 Source: Developed by Drs. Olvin Kahn, Mandi Andres, Renzo Padilla and colleagues, with an educational agnieszka from [employer]. ЕЛЕНА-7 Assessment Billing ЕЛЕНА-7 Assessment Tool: ЕЕЛНА-7 Assessment 15210 Review of Systems Const All systems reviewed & are unremarkable except as noted in HPI and below Card Denies chest pain at rest, Denies chest pain with activity, Denies edema, Denies irregular heart rhythm, Denies claudication, Denies dyspnea, Denies dyspnea on exertion, Denies orthopnea, Denies paroxysmal nocturnal dyspnea and Denies slow heart rate Resp Denies cough, Denies dyspnea and Denies dyspnea on exertion Physical exam (Primary Care) Vital Signs: Last Vital Signs Pulse 61 01/28/25 09:02 BP 132/80 01/28/25 09:02 Pulse Ox 98 01/28/25 09:02 Oxygen Delivery Method Room Air 01/28/25 09:02 BMI result Body Mass Index 24.9 Tobacco/Smoking Status: Tobacco use Status Tobacco use date assessed 01/28/25 01/28/25 09:08 Patient Tobacco Use Status Never used Tobacco 01/28/25 09:08 Tobacco use type 07/18/24 15:25 e-Cigarette/Vaping Use Never Used 01/28/25 09:08 PHQ-9: PHQ-9 Score PHQ-9: Total score 0 01/28/25 09:08 Depression Screening Interpretation: Negative Thrive Assessment: Date of Thrive Assessment Date Thrive assessed 01/28/25 01/28/25 09:08 Currently or been in a relationship where the following occur: I choose not to answer Resp Effort & Inspection: normal respiratory effort Auscultation: clear to auscultation bilaterally Cardio Jugular venous distension: no JVD Rate: regular rate Rhythm: regular rhythm Heart sounds: S1 normal heart sound present and S2 normal heart sound present Extrem General: Yes full ROM Coding Level of Care Code Est Pt Level 4 (48267) Complex EM visit Add On G2211 Diagnoses Pre-op evaluation Z01.818 Essential hypertension I10 Macromastia N62 Thoracic spine pain M54.6 Additional Codes PHQ-9 - 89341 - PHQ-9 Billing: Yes ([id number]) ЕЛЕНА-7 Assessment Billing - ЕЛЕНА-7 Assessment Tool: ЕЛЕНА-7 Assessment 19255 ([id number]) Time Spent (min) 24 Assessment & Plan Assessment & Plan (1) Pre-op evaluation: Code(s): Z01.818 - Encounter for other preprocedural examination Category: Medical (2) Essential hypertension: Code(s): I10 - Essential (primary) hypertension Category: Medical (3) Macromastia: Code(s): N62 - Hypertrophy of breast Category: Medical (4) Thoracic spine pain: Code(s): M54.6 - Pain in thoracic spine Category: Medical Plan 0.4% cardiovascular risk of intraoperative complications. The patient's informed of possible surgical risks and benefits. Prior surgical outcomes encourage proceeding as planned. Existing supplements, including calcium and vitamin D and multivitamins, will remain unchanged. She will seek advice should any adverse symptoms present post-operatively.: Patient was informed and verbally consented to the use of an ambient scribe for clinic note documentation during this visit. I discussed with the patient the outcome of her preoperative evaluation, which supports proceeding with her scheduled breast reduction surgery. We reviewed the use of her current antihypertensive regimen and the findings from her tools such as the electrocardiogram and recent blood work, both of which show no contraindications. We calculated a 0.4% risk of cardiovascular complications during surgery based on RCRI, reinforcing the plan to proceed cautiously. I discussed the required follow-up with her surgeon, Dr. Liat Genao, and emphasized reporting any acute symptoms like new chest pain or breathlessness post-surgery. I highlighted the significance of her allergy to hydrocodone, reminding to avoid such opioids postoperatively. Overall, the patient expressed understanding and agreement with the current plan. Patient Instructions: - Continue taking your prescribed medications as directed. - Avoid any medications containing hydrocodone. - Follow up with your surgeon, Dr. Liat Genao, as scheduled. - Attend your breast reduction surgery on February 27 as planned. - Inform your healthcare provider immediately if you experience chest pain or difficulty breathing after surgery. - Maintain your routine supplement intake of calcium with vitamin D and multivitamins.
[2025-01-28 09:02] VITALS: BP 132/80; PULSE 61; O2SAT 98; BMI 24.9
== END 2025-01-28 09:27 | disposition home or self-care (01) ==
LOC: HO.HMCH 08:52
PROVIDERS: PCP Internal Medicine; Visit Provider Internal Medicine
DX: Z01.818 Encounter for other preprocedural examination (principal); I10 Essential (primary) hypertension; N62 Hypertrophy of breast; M54.6 Pain in thoracic spine

== ENCOUNTER → 2025-01-28 08:51 | Outpatient (BNVA) | payer OTHER, SELFPAY | PROVIDERS: PCP Internal Medicine; Visit Provider Internal Medicine | DX: Z01.818 Encounter for other preprocedural examination (principal); N62 Hypertrophy of breast; I10 Essential (primary) hypertension; M54.6 Pain in thoracic spine | CPT/HCPCS: 96127 ==

== ENCOUNTER 2025-03-24 07:50 | Outpatient (AMB) | payer OTHER, SELFPAY ==
--- NOTE | 2025-03-24 07:52 | A.OFFPC_ITS ---
Vital Signs 03/24/25 07:56 Height 4 ft 10 in Weight 117 lb BMI 24.5 BP 124/80 Blood Pressure Location Lt brachial Position Sitting Intake Visit Reasons: 6 month Intake Note: Patient here for a 6 month follow up Conference Services Manager Required: No Accompanied by: Self / Same As Patient Allergies hydrocodone (HYDROCODONE) Allergy (Mild, Verified 03/24/25 08:20) SWELLING Medication List - Last Reconciled 03/24/25 by Chantelle Mayen MD amlodipine 5 mg PO DAILY 30 days calcium citrate-vitamin D3 250 mg-5 mcg (200 unit) 2 tabs PO BID cholecalciferol (vitamin D3) 50 mcg PO DAILY hydrochlorothiazide 25 mg PO DAILY 90 days lisinopril 30 mg PO DAILY 90 days multivitamin 1 cap PO DAILY omeprazole 40 mg PO BID scopolamine base 1 patch transdermal Q3D PRN 14 days Tobacco use date assessed: 01/28/25 Dental Screening Dental Screen Date: 01/28/25 HPI HPI Comments History of Present Illness Details The patient is a 59-year-old female presenting for follow-up of her chronic conditions, including hypertension and hyperlipidemia. She is currently taking amlodipine and hydrochlorothiazide for hypertension management. Her blood pressure has been well-controlled with these medications. She also has osteopenia and has calcium with vitamin-D. The patient also reports a history of gastroesophageal reflux disease (GERD) for which she takes omeprazole twice daily. She mentioned that the pharmacy requires a new prescription for omeprazole. The patient underwent bilateral breast reduction surgery, with the last laboratory tests conducted in November during her mammogram. She is scheduled for laboratory tests in August as part of her annual physical examination. [facility] Medical History (Updated 03/24/25 @ 09:24 by Chantelle Mayen MD) ЕЛЕНА (generalized anxiety disorder) Mild major depression Neck pain Chest pain New daily persistent headache Uncontrolled hypertension Pure hypercholesterolemia Mass of soft tissue of face Cyst Shingles Joint pain Hyperlipidemia Fibromyalgia Pre-diabetes Hypertension GERD (gastroesophageal reflux disease) Intestinal malabsorption following gastrectomy Intestinal malabsorption Cholelithiasis Surgical History History of bilateral breast reduction surgery History of esophagogastroduodenoscopy (EGD) (09/28/23) H/O colonoscopy (09/28/23) H/O: hysterectomy S/P laparoscopic cholecystectomy Status post panniculectomy S/P gastric bypass Family History Father Prostate cancer Mother Dementia Brother No problems noted. Sister No problems noted. Sister No problems noted. Son No problems noted. Son No problems noted. Son No problems noted. Social History Housing: House Alcohol intake: current Alcohol intake frequency: holidays/special occasions only Alcohol type: wine and hard liquor Patient Tobacco Use Status: Never used Tobacco e-Cigarette/Vaping Use: Never Used Second Hand Smoke Exposure: No service: No Current occupational status: employed Current occupational exposures/hazards: No Cognitive needs: No Hearing needs: No Vision needs: No Questionnaire PHQ-9 Over the last 2 weeks, how often have you been bothered by any of the following problems? 1. Little interest or pleasure in doing things: not at all 2. Feeling down, depressed, or hopeless: not at all 3. Trouble falling or staying asleep, or sleeping too much: not at all 4. Feeling tired or having little energy: not at all 5. Poor appetite or overeating: not at all 6. Feeling bad about yourself - or that you are a failure or have let yourself or your family down: not at all 7. Trouble concentrating on things, such as reading the newspaper or watching television: not at all 8. Moving or speaking so slowly that other people could have noticed. Or the opposite - being so fidgety or restless that you have been moving around a lot more than usual: not at all 9. Thoughts that you would be better off or of hurting yourself in some way: not at all Total score: 0 Depression Screening Interpretation: Negative Depression Screening Done: Yes 10896 - PHQ-9 Billing: Yes Source: Developed by Drs. Olvin Kahn, Mandi Andres, Renzo Padilla and colleagues, with an educational agnieszka from [employer]. Thrive Questionnaire Date Thrive assessed: 03/17/25 I am a: Patient What is your living situation today?: I have a steady place to live Within the past 12 months, did the food you bought not last and you didn't have the money to get more?: Never true Within the past 12 months, did you worry whether your food would run out before you got money to buy more?: Never true Do you have trouble paying for medicines?: No Do you have trouble getting transportation to medical appointments?: No Do you have trouble paying your heating and electricity bill?: No Do you have trouble taking care of your child, family member or friend?: No Do you have trouble with day-to-day activities such as bathing, preparing meals, shopping, managing finances, etc.?: No Are you currently unemployed and looking for a job?: No Are you interested in more education?: No Please select the resources that you would like help with: None Currently or been in a relationship where the following occur: No concerns reported THRIVE Score: 0 AUDIT C Alcohol Use Questionnaire (AUDIT-C) 1. How often do you have a drink containing alcohol?: Never 2. How many drinks containing alcohol do you have on a typical day when you are drinking?: 1 or 2 3. How often do you have six or more drinks on one occasion?: Never Total Score: 0 Score Reviewed/Action Taken: No ЕЛЕНА-7 AMB Questionnaire ЕЛЕНА-7 Date ЕЛЕНА - 7 assessed: 01/28/25 Feeling nervous, anxious, or on edge: 0 = Not at all Not being able to stop or control worryin = Not at all Worrying too much about different things: 0 = Not at all Trouble relaxin = Not at all Being so restless that it is hard to sit still: 0 = Not at all Becoming easily annoyed or irritable: 0 = Not at all Feeling afraid as if something awful might happen: 0 = Not at all Total ЕЛЕНА-7 score (0-4 normal; 5-9 mild; 10-14 moderate; 15-21 severe): 0 Source: Developed by Drs. Olvin Kahn, Mandi Andres, Renzo Padilla and colleagues, with an educational agnieszka from [employer]. Review of Systems Const All systems reviewed & are unremarkable except as noted in HPI and below Card Denies chest pain at rest, Denies chest pain with activity, Denies edema, Denies irregular heart rhythm, Denies claudication, Denies dyspnea, Denies dyspnea on exertion, Denies orthopnea, Denies paroxysmal nocturnal dyspnea and Denies slow heart rate Resp Denies cough, Denies dyspnea and Denies dyspnea on exertion GI Denies abdominal pain, Denies change in bowel habits, Denies excessive flatus, Denies nausea and Denies vomiting Denies urinary incontinence, Denies urinary hesitancy and Denies urinary urgency Musc Denies atrophy, Denies deformity and Denies limited range of motion Physical exam (Primary Care) Vital Signs: Last Vital Signs BP 124/80 03/24/25 07:56 BMI result Body Mass Index 24.5 Tobacco/Smoking Status: Tobacco use Status Tobacco use date assessed 01/28/25 03/24/25 07:54 Patient Tobacco Use Status Never used Tobacco 03/24/25 07:54 Tobacco use type 07/18/24 15:25 e-Cigarette/Vaping Use Never Used 03/24/25 07:54 PHQ-9: PHQ-9 Score PHQ-9: Total score 0 03/24/25 08:22 Depression Screening Interpretation: Negative Thrive Assessment: Date of Thrive Assessment Date Thrive assessed 03/17/25 03/24/25 07:54 Currently or been in a relationship where the following occur: No concerns reported Resp Effort & Inspection: normal respiratory effort Auscultation: clear to auscultation bilaterally Cardio Jugular venous distension: no JVD Rate: regular rate Rhythm: regular rhythm Heart sounds: S1 normal heart sound present and S2 normal heart sound present Extrem General: Yes full ROM Coding Level of Care Code Est Pt Level 4 (44707) Complex EM visit Add On G2211 Diagnoses Essential hypertension I10 Osteopenia M85.80 Pure hypercholesterolemia E78.00 GERD (gastroesophageal reflux disease) K21.9 Additional Codes PHQ-9 - 17133 - PHQ-9 Billing: Yes ([id number]) Time Spent (min) 22 Assessment & Plan Assessment & Plan (1) Essential hypertension: Code(s): I10 - Essential (primary) hypertension Category: Medical (2) Osteopenia: Code(s): M85.80 - Other specified disorders of bone density and structure, unspecified site Category: Medical (3) Pure hypercholesterolemia: Code(s): E78.00 - Pure hypercholesterolemia, unspecified Category: Medical (4) GERD (gastroesophageal reflux disease): Comment: Symptoms much improved with omeprazole open capsule Code(s): K21.9 - Gastro-esophageal reflux disease without esophagitis Category: Medical Plan The patient will continue her current antihypertensive regimen of amlodipine and hydrochlorothiazide, as her blood pressure is well-controlled. A new prescription for omeprazole will be sent to the pharmacy to manage her gastroesophageal reflux disease. Laboratory tests are scheduled for August as part of her annual physical examination to monitor her chronic conditions. Patient was informed and verbally consented to the use of an ambient scribe for clinic note documentation during this visit. I discussed with the patient the importance of continuing her current medications for hypertension and GERD management. We also talked about scheduling her laboratory tests in August to ensure comprehensive monitoring of her health status. Orders: Orders Lipid Panel 6 Months E78.5 - Hyperlipidemia, unspecified Vitamin D 25-OH Total 6 Months E55.9 - Vitamin D deficiency, unspecified Comprehensive [place]. Panel Fast 6 Months I10 - Essential (primary) hypertension Medications: Changed From omeprazole open capsule and mix granules with apple sauce 40 mg PO BID 90 caps 1RF To omeprazole open capsule and mix granules with apple sauce 40 mg PO .once a day 90 caps 1RF 90 days Patient Instructions: - Continue taking amlodipine and hydrochlorothiazide as prescribed. 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 - Schedule and complete laboratory tests in August, ensuring 8 hours of fasting beforehand.
[2025-03-24 07:56] VITALS: BP 124/80; BMI 24.5
== END 2025-03-24 08:30 | disposition home or self-care (01) ==
LOC: HO.HMCH 07:51
PROVIDERS: PCP Internal Medicine; Visit Provider Internal Medicine
DX: I10 Essential (primary) hypertension (principal); M85.80 Other specified disorders of bone density and structure, unspecified site; E78.00 Pure hypercholesterolemia, unspecified; K21.9 Gastro-esophageal reflux disease without esophagitis

== ENCOUNTER → 2025-03-24 07:50 | Outpatient (BNVA) | payer OTHER, SELFPAY | PROVIDERS: PCP Internal Medicine; Visit Provider Internal Medicine | DX: K21.9 Gastro-esophageal reflux disease without esophagitis (principal); I10 Essential (primary) hypertension; M85.80 Other specified disorders of bone density and structure, unspecified site; E78.00 Pure hypercholesterolemia, unspecified; E55.9 Vitamin D deficiency, unspecified | CPT/HCPCS: 96127 ==

== ENCOUNTER 2025-09-24 07:30 | Outpatient (AMB) | payer OTHER, SELFPAY ==
--- NOTE | 2025-09-24 07:34 | A.OFFPC_ITS ---
Vital Signs 09/24/25 07:36 Height 4 ft 10 in Weight 119 lb BMI 24.9 BP 158/92 H Blood Pressure Location Lt brachial Position Sitting Intake Visit Reasons: PHYSICAL Intake Note: Patient here for a physical exam Insulation Packer Required: No Accompanied by: Self / Same As Patient Allergies hydrocodone (HYDROCODONE) Allergy (Mild, Verified 09/24/25 07:46) SWELLING Medication List - Last Reconciled 09/24/25 by Chantelle Mayen MD amlodipine 5 mg PO DAILY 30 days calcium citrate-vitamin D3 250 mg-5 mcg (200 unit) 2 tabs PO BID cholecalciferol (vitamin D3) 50 mcg PO DAILY hydrochlorothiazide 25 mg PO DAILY 90 days lisinopril 30 mg PO DAILY 90 days multivitamin 1 cap PO DAILY omeprazole 40 mg PO .once a day 90 days Tobacco use date assessed: 01/28/25 Dental Screening Dental Screen Date: 01/28/25 Did you have a dental visit in the last 12 months?: Yes Did you have a dental problem in the last 6 months where you did not have access to dental care?: No Was dental information given to patient?: Patient has dentist HPI HPI Comments History of Present Illness Details The patient is a 59-year-old female presenting for her physical exam. No need for Pap smear due to hysterectomy. Mammogram done last year and was normal. Her last colonoscopy revealed a tubular adenoma, and a repeat procedure was r ecommended in 3 to 5 years rather than the standard 10 years. She has a history of osteopenia, which was diagnosed on a bone density scan performed after her gastric bypass surgery due to rapid weight loss. A follow-up bone density scan was previously scheduled but was canceled and has not been rescheduled. The patient's past surgical history is significant for bilateral breast reduction, endoscopy, colonoscopy, hysterectomy, cholecystectomy, panniculectomy, and gastric bypass. Her family history is notable for a father with prostate cancer. She reports some stabbing breast pain, which she feels is sometimes worse due to breast size. Her current medications for hypertension include amlodipine 5 mg, hydrochlorothiazide 25 mg, and lisinopril 30 mg. She also takes omeprazole for acid reflux, as well as calcium with vitamin D and a multivitamin. Blood pressure will be recheck in 3 weeks by nurse navigator. Her last tetanus vaccine was in 2015, and she is due for a mammogram after February. [facility] Medical History (Updated 09/24/25 @ 08:07 by Chantelle Mayen MD) ЕЛЕНА (generalized anxiety disorder) Mild major depression Neck pain Chest pain New daily persistent headache Uncontrolled hypertension Pure hypercholesterolemia Mass of soft tissue of face Cyst Shingles Joint pain Hyperlipidemia Fibromyalgia Pre-diabetes GERD (gastroesophageal reflux disease) Intestinal malabsorption following gastrectomy Intestinal malabsorption Cholelithiasis Surgical History History of bilateral breast reduction surgery History of esophagogastroduodenoscopy (EGD) (09/28/23) H/O colonoscopy (09/28/23) H/O: hysterectomy S/P laparoscopic cholecystectomy Status post panniculectomy S/P gastric bypass Family History Father Prostate cancer Mother Dementia Brother No problems noted. Sister No problems noted. Sister No problems noted. Son No problems noted. Son No problems noted. Son No problems noted. Social History Housing: House Alcohol intake: current Alcohol intake frequency: holidays/special occasions only Alcohol type: wine and hard liquor Patient Tobacco Use Status: Never used Tobacco e-Cigarette/Vaping Use: Never Used Second Hand Smoke Exposure: No service: No Current occupational status: employed Current occupational exposures/hazards: No Cognitive needs: No Hearing needs: No Vision needs: No Questionnaire PHQ-9 Over the last 2 weeks, how often have you been bothered by any of the following problems? 1. Little interest or pleasure in doing things: not at all 2. Feeling down, depressed, or hopeless: not at all 3. Trouble falling or staying asleep, or sleeping too much: not at all 4. Feeling tired or having little energy: not at all 5. Poor appetite or overeating: not at all 6. Feeling bad about yourself - or that you are a failure or have let yourself or your family down: not at all 7. Trouble concentrating on things, such as reading the newspaper or watching television: not at all 8. Moving or speaking so slowly that other people could have noticed. Or the opposite - being so fidgety or restless that you have been moving around a lot more than usual: not at all 9. Thoughts that you would be better off or of hurting yourself in some way: not at all Total score: 0 Depression Screening Interpretation: Negative Depression Screening Done: Yes 68652 - PHQ-9 Billing: Yes Source: Developed by Drs. Olvin Kahn, Mandi Andres, Renzo Padilla and colleagues, with an educational agnieszka from [employer]. Thrive Questionnaire Date Thrive assessed: 03/17/25 I am a: Patient What is your living situation today?: I have a steady place to live Within the past 12 months, did the food you bought not last and you didn't have the money to get more?: Never true Within the past 12 months, did you worry whether your food would run out before you got money to buy more?: Never true Do you have trouble paying for medicines?: No Do you have trouble getting transportation to medical appointments?: No Do you have trouble paying your heating and electricity bill?: No Do you have trouble taking care of your child, family member or friend?: No Do you have trouble with day-to-day activities such as bathing, preparing meals, shopping, managing finances, etc.?: No Are you currently unemployed and looking for a job?: No Are you interested in more education?: No Currently or been in a relationship where the following occur: No concerns reported THRIVE Score: 0 ЕЛЕНА-7 AMB Questionnaire ЕЛЕНА-7 Date ЕЛЕНА - 7 assessed: 09/24/25 Feeling nervous, anxious, or on edge: 0 = Not at all Not being able to stop or control worryin = Not at all Worrying too much about different things: 0 = Not at all Trouble relaxin = Not at all Being so restless that it is hard to sit still: 0 = Not at all Becoming easily annoyed or irritable: 0 = Not at all Feeling afraid as if something awful might happen: 0 = Not at all Total ЕЛЕНА-7 score (0-4 normal; 5-9 mild; 10-14 moderate; 15-21 severe): 0 Source: Developed by Drs. Olvin Kahn, Mandi AndresRenzo and colleagues, with an educational agnieszka from [employer]. ЕЛЕНА-7 Assessment Billing ЕЛЕНА-7 Assessment Tool: ЕЛЕНА-7 Assessment 98501 Review of Systems Const All systems reviewed & are unremarkable except as noted in HPI and below Card Denies chest pain at rest, Denies chest pain with activity, Denies edema, Denies irregular heart rhythm, Denies claudication, Denies dyspnea, Denies dyspnea on exertion, Denies orthopnea, Denies paroxysmal nocturnal dyspnea and Denies slow heart rate Resp Denies cough, Denies dyspnea and Denies dyspnea on exertion GI Denies abdominal pain, Denies change in bowel habits, Denies excessive flatus, Denies nausea and Denies vomiting Denies urinary incontinence, Denies urinary hesitancy and Denies urinary urgency Physical exam (Primary Care) Vital Signs: Last Vital Signs BP 158/92 H 09/24/25 07:36 BMI result Body Mass Index 24.9 Tobacco/Smoking Status: Tobacco use Status Tobacco use date assessed 01/28/25 09/24/25 07:35 Patient Tobacco Use Status Never used Tobacco 09/24/25 07:35 Tobacco use type 07/18/24 15:25 e-Cigarette/Vaping Use Never Used 09/24/25 07:35 PHQ-9: PHQ-9 Score PHQ-9: Total score 0 09/24/25 07:54 Depression Screening Interpretation: Negative Thrive Assessment: Date of Thrive Assessment Date Thrive assessed 03/17/25 09/24/25 07:35 Currently or been in a relationship where the following occur: No concerns reported [facility] Head: Yes normal to inspection, Yes normocephalic and Yes atraumatic Ears: external ears normal Eyes General: appearance normal, both eyes and all related structures Eyelids: Yes eyelids normal Conjunctivae: conjunctivae normal Neck Neck: Yes normal visual inspection and Yes supple Resp Effort & Inspection: normal respiratory effort Auscultation: clear to auscultation bilaterally Cardio Jugular venous distension: no JVD Rate: regular rate Rhythm: regular rhythm Heart sounds: S1 normal heart sound present and S2 normal heart sound present GI Inspection: Yes normal to inspection Palpation (GI): Soft to palpation and nontender Auscultation: normal bowel sounds Skin General skin exam: no rashes or lesions noted Neuro General: no focal motor deficits Extrem General: Yes full ROM Psych Appearance: grossly normal Office Procedures Flu Questionnaire Does the patient have a severe egg allergy?: No Does the patient have severe life threatening allergies?: No Does the patient have a fever or illness today?: No Has the patient ever had Guillain-Diamondhead Syndrome?: No Has the patient ever had any past reaction to a flu shot?: No Immunizations Fluarix [id number] (PF) 45 mcg (15 mcg x 3)/0.5 mL IM syringe Performing Provider: Chantelle Mayen MD [facility] [place] Administered by: MUNIRA Alvarez on 09/24/25 08:05 Dose Route Admin Location Dispensed Lot Number Expiration Date NDC Route Delivery Service Driver 0.5 mL IM Left Deltoid 0.5 mL [id number] 03/24/26 70484-847-53 [employer] VIS Given Date VIS Provided VIS Publication Date 09/24/25 Single Vaccine 24 Eligibility Eligibility Date Funding Source Not [facility] Eligible 09/24/25 Private Coding Level of Care Code Est Pt Prev Care 40-64y(14965) Diagnoses Physical exam Z00.00 Additional Codes PHQ-9 - 18244 - PHQ-9 Billing: Yes ([id number]) ЕЛЕНА-7 Assessment Billing - ЕЛЕНА-7 Assessment Tool: ЕЛЕНА-7 Assessment 14702 ([id number]) Time Spent (min) 31 Assessment & Plan Assessment & Plan (1) Physical exam: Code(s): Z00.00 - Encounter for general adult medical examination without abnormal findings Category: Medical Plan Plan The patient's blood pressure was noted to be slightly elevated despite her current regimen of amlodipine, hydrochlorothiazide, and lisinopril. A follow-up visit in 2 to 3 weeks is planned to recheck her blood pressure. The patient has a history of osteopenia and is overdue for a follow-up bone density scan. Laboratories will be ordered to assess bone health, and she is advised to schedule the scan. No need for Pap smear due to hysterectomy. Continue yearly mammograms. Colonoscopy to be repeated in 3-5 years. Tdap vaccine to be done 2025. Flu vaccine given today. Orders: Orders Lipid Panel Today E78.5 - Hyperlipidemia, unspecified XR DEXA axial skeleton Today Z78.0 - Asymptomatic menopausal state Comprehensive [place]. Panel Fast Today Z00.00 - Encounter for general adult medical examination without abnormal findings Influenza [id number] Immunization Today Z23 - Encounter for immunization Vitamin D 25-OH Total Today E55.9 - Vitamin D deficiency, unspecified
[2025-09-24 07:36] VITALS: BP 158/92; BMI 24.9
== END 2025-09-24 08:05 | disposition home or self-care (01) ==
LOC: HO.HMCH 07:30
PROVIDERS: PCP Internal Medicine; Visit Provider Internal Medicine
DX: Z23 Encounter for immunization (principal); Z00.00 Encounter for general adult medical examination without abnormal findings

== ENCOUNTER 2025-09-24 07:30 | Outpatient (REF) | payer OTHER, SELFPAY ==
[2025-09-24 09:23] LABS: Alanine Aminotransferase 13 U/L (0-31); Albumin Level 4.1 g/dL (3.5-5.0); Alkaline Phosphatase 88 U/L (39-117); Anion Gap 12 (12-20); Aspartate Amino Transferase 27 U/L (5-31); Blood Urea Nitrogen 13 mg/dL (9-16); Calcium 8.7 mg/dL (8.4-10.2); Carbon Dioxide 26 mmol/L (22-29); Chloride 110 mmol/L (96-108); Cholesterol 214 mg/dL (<200); Estimated Glomerular Filt Rate > 60; HDL Cholesterol 76 mg/dL (>40); Potassium 3.7 mmol/L (3.3-5.1); Sodium 144 mmol/L (135-145); Total Protein 6.7 g/dL (6.5-8.0); Triglycerides 126 mg/dL (<150)
== END 2025-09-24 07:31 | disposition home or self-care (01) ==
LOC: HO.LAB 07:30
PROVIDERS: PCP Internal Medicine; Visit Provider Internal Medicine
DX: Z00.00 Encounter for general adult medical examination without abnormal findings (principal); E55.9 Vitamin D deficiency, unspecified; E78.5 Hyperlipidemia, unspecified; Z13.31 Encounter for screening for depression; Z13.39 Encounter for screening examination for other mental health and behavioral disorders; Z23 Encounter for immunization
CPT/HCPCS: 36415; 80053; 80061; 82306; 90471; 90656; 96127